=== PATIENT | male | born 1955 | race Caucasian/White ===

== ENCOUNTER 2020-12-20 12:56 | Emergency (ER) | payer MEDICARE, SELFPAY ==
[2020-12-20] VITALS (7 sets, daily range): BP systolic 104–178; BP diastolic 54–87; PULSE 77–100; RESP 18; TEMP 36.8; O2SAT 99–100
--- NOTE | ~2020-12-20 | CT_ITS ---
EXAMINATION: CT brain wo con, CT cervical spine wo con EXAM DATE: 12/20/2020 14:40 INDICATION: Head injury. TECHNIQUE: Spiral CT of the head was performed without contrast. Axial, coronal and sagittal images were reviewed. Spiral CT of the cervical spine was performed without contrast. Axial images were rev iewed. Coronal and sagittal reformatted images were also reviewed. The dose-length product (DLP) fo r this examination was 681.00 (accession [id number]), 423.94 (accession [id number]) mGy-cm. The exposure was tailored according to patient size, and iterative reconstruction (ASIR) was used as additional dose reduction technique. Comparison is made to prior examination from 10/05/2019. FINDINGS: HEAD CT: There is moderate-sized old left frontal lobe infarction. Small old left occipital lobe infa rction. There is no acute intraparenchymal hemorrhage. No evidence of intraparenchymal brain mass le yfn. No evidence of acute infarction. There is periventricular and subcortical hypodensity, nonspec ific but probably related to small vessel ischemic disease. There is prominence of the sulci and ve ntricles related to cerebral atrophy. There is intracranial carotid arteriosclerosis. There is no mass effect or midline shift. There is no obstructive hydrocephalus suspected. There are no extra-a xial collections. There are no acute calvarial fractures. The orbits are unremarkable. Small soft tissue nodular density along the skin of the left forehead. Possible small amount of left posterior s calp swelling. The visualized sinuses and mastoid air cells are well aerated. CERVICAL CT: Mild apical emphysema. There is no evidence of acute cervical fracture. The odontoid pr ocess is intact. Pre-dens space is normal. Prevertebral soft tissue is normal. There are no soft t issue abnormalities identified. There is no disc space widening or traumatic vertebral body subluxat ion suspected. Interbody fusion C4-5 and 5-6. Severe right facet arthropathy at C3-4 with mild to mo derate disc bulge and central canal stenosis. Lesser spondylosis at other levels. A detailed level b y level evaluation of spondylosis can be added as addendum if requested. IMPRESSION: 1. No acute intracranial findings or cervical fracture. 2. Old left-sided infarctions.. 3. Age-related intracranial findings. 4. Cervical fusion, spondylosis. 5. Scalp findings. Reviewed, dictated and finalized at location A. BURNER IMPRESSION: 1. No acute intracranial findings or cervical fracture. 2. Old left-sided infarctions.. 3. Age-related intracranial findings. 4. Cervical fusion, spondylosis. 5. Scalp findings.
--- NOTE | ~2020-12-20 | XR_ITS ---
EXAMINATION: XR chest 1V portable INDICATION: Pain after fall TECHNIQUE: Portable AP chest at 1331 hours COMPARISON: 10/05/2019 FINDINGS: The lungs are free of acute opacities. There is no pleural effusion or pneumothorax. The ca rdiomediastinal silhouette is normal. There is an old fracture of the right distal clavicle. Osteoart hritis is noted in the shoulders. IMPRESSION: 1. No acute cardiopulmonary abnormality. Reviewed, dictated and finalized at location A. ME WORKER
--- NOTE | 2020-12-20 13:23 | ECG_ITS ---
Measurements Intervals [place] Rate: 73 P: -6 CT: 205 QRS: 67 QRSD: 93 T: 30 QT: 378 QTc: 419 Interpretive Statements SINUS RHYTHM BORDERLINE AV CONDUCTION DELAY BORDERLINE ECG Electronically Signed On 12-20-2020 16:24:18 [employer] by Raj Castaneda D.O.
--- NOTE | 2020-12-20 13:26 | ED.FALL ---
HPI - Fall General Chief Complaint: Fall Stated Complaint: fall, high blood sugar Source: patient and EMS Mode of arrival: EMS Limitations: dementia History of Present Illness HPI Narrative: Patient 65 years old white male brought to the emergency room by ambulance because of a fall. Patient does not remember how the fall happened. History of dementia. According to the ambulance report patient was walking, lost his balance and fell, no loss of consciousness, patient complaining of headache. Patient does not remember if the headache was before or after the fall. Patient denying any injury. Patient does not remember anything but he is awake, alert oriented x4. Patient had history of CVA with right hemiplegia, uses a walker sometimes. Related Data Home Medications Medication Instructions Recorded Confirmed atorvastatin [Lipitor] 10 mg PO DAILY 10/05/19 10/05/19 metformin [Glucophage XR] 500 mg PO DAILY 10/05/19 10/05/19 niacin 500 mg PO DAILY 10/05/19 10/05/19 sertraline 50 mg PO DAILY 10/05/19 10/05/19 insulin degludec [Tresiba 10 unit SUBCUT 12/20/20 FlexTouch U-200] quinapril 40 mg PO DAILY 12/20/20 12/20/20 Allergies Allergy/AdvReac Type Severity Reaction Status Date / Time No Known Allergies Allergy Verified 10/07/19 14:33 Review of Systems Review of Systems: ROS unobtainable: Yes unobtainable due to mental status PMFSH Past Medical History Medical History (Updated 12/20/20 @ 17:03 by Christiano Tran MD) Arthritis Blind left eye Bronchitis Depression DM2 (diabetes mellitus, type 2) HTN (hypertension), malignant Hyperlipidemia Internal hemorrhoids Pelvic fracture TBI (traumatic brain injury) Tobacco abuse Surgical History Surgical History History of cardiac catheterization History of spinal surgery Family History Family History Mother Diabetes mellitus Father Carcinoma of colon Social History Social History Social History: The patient is . He is currently staying with his son. Dr. Nielsen is his primary care doctor. His brother Robert is his durable power consumer attorney and the patient wishes to be a DNR after the surgery Smoking packs per day: 0.4 Smoking cigarettes per day: 8.0 Years smoked: 52 Smoking pack-years: 20.80 Smoking status: Light tobacco smoker Tobacco type: cigarettes Second hand tobacco smoke exposure: Yes Alcohol intake: former Substance use: never Substance use type: does not use Additional living arrangements comments: His son Additional occupation/education comments: Disabled Gender identity (if verbalized by the patient): Male Spiritual care concerns: No Agree to blood products: Yes Exam Narrative: Exam Narrative: General appearance: Well-developed, well-nourished Skin: Normal color Head: Normocephalic, nontraumatic Eyes: Clear conjunctiva ENT: Oropharynx normal, ears normal, nose normal Neck: Supple, nontender Chest and respiratory: Airway patent, no respiratory distress, no accessory muscle use Heart: Regular rate/rhythm Abdomen: Soft, nontender, no organomegaly, quiet bowel sounds Vascular: Normal peripheral pulses, normal capillary refill. Musculoskeletal: Normal range of motion, nontender back, limited range of motion of the right and lower extremity because of hemiplegia Neurologic: Alert and oriented ?3, right hemiplegia Course Course Emergency Course: Stable Vital Signs Vital signs: Vital Signs Temperature 36.8 C 12/20/20 13:02 Pulse Rate 77 12/20/20 13:02 Respirato
[2020-12-20 14:03] LABS: Basophils Percent Auto 0.8 % (0.2-1.2); Eosinophils Absolute Auto 0.1 K/mm3 (0-0.3); Eosinophils Percent Auto 2.8 % (0-4.4); Hematocrit 30.6 % (42.0-52.0); Hemoglobin 10.7 g/dL (14.0-18.0); Immature Granulocyte Absolute 0.02 K/mm3 (0.00-0.031); Immature Granulocyte Percent A 0.4 % (0-0.5); Lymphocytes Absolute Auto 0.86 K/mm3 (0.9-3.2); Lymphocytes Percent Auto 18.3 % (18.3-44.2); Mean Corpuscular Hemoglobin 30.8 pg (26-34); Mean Corpuscular Volume 88.2 fl (80-100); Mean Platelet Volume 9.4 fl (7.4-10.4); Monocytes Absolute Auto 0.2 K/mm3 (0.1-0.6); Monocytes Percent Auto 4.9 % (2.6-8.5); Neutrophils Absolute Auto 3.4 K/mm3 (1.3-6.7); Neutrophils Percent Auto 72.8 % (45.5-73.1); Platelet Count Result 144 k/mm3 (150-375); Red Blood Count 3.47 M/mm3 (4.6-6.20); Red Cell Distribution Width 12.9 % (11.5-14.5); White Blood Count 4.7 K/mm3 (4.5-10.0)
[2020-12-20 14:15] LABS: Partial Thromboplastin Time 25.5 SECONDS (22.3-36.8); Prothrombin Time 13.5 Seconds (11.1-14.7)
[2020-12-20 14:24] LABS: Add Urine Microscopic? YES; Appearance Urine Clear (Clear); Bilirubin Urine Negative (Negative); Blood Urine Negative (Negative); Color Urine Straw (Yellow); Glucose Urine UA 3+ mg/dL (Negative); Ketones Urine Negative (Negative); Leukocyte Esterase Ur Negative LEU/UL (Negative); Nitrate Urine Negative (Negative); Protein Urine 1+ mg/dL (Negative); RBC Urine 0-2 /hpf (0-2); Specific Grav Ur 1.024 (1.001-1.035); Urobilinogen Urine Negative mg/dL (<2.0); WBC Urine 0-3 /hpf
[2020-12-20 14:26] LABS: Alanine Aminotransferase 12 U/L (4-50); Albumin Level 3.8 g/dL (3.5-5.1); Alkaline Phosphatase 87 U/L (38-126); Anion Gap 8 mmol/L (8-16); Aspartate Amino Transferase 15 U/L (17-59); Bilirubin,Total 0.5 mg/dL (0.2-1.3); Blood Urea Nitrogen 26 mg/dL (9-20); Carbon Dioxide 27 mmol/L (22-30); Chloride 97 mmol/L (98-107); Estimated CRCL calculation 50 ml/min; Estimated Glomerular Filt Rate 55; Glucose 434 mg/dL (75-110); Potassium 4.3 mmol/L (3.4-5.0); Sodium 132 mmol/L (137-145); Troponin I < 0.012 ng/mL (0.000-0.034)
[2020-12-20 14:39] LABS: Amphetamine Screen Urine Negative (Negative); Barbiturate Screen Urine Negative (Negative); Benzodiazepines Screen Urine Negative (Negative); Cannabinoid Screen Urine Negative (Negative); Cocaine Screen Urine Negative (Negative); Methadone Screen Urine Negative (Negative); Opiate Screen Urine Negative (Negative); Phencyclidine Screen Urine Negative (Negative)
[2020-12-20 14:44] LABS: Thyroid Stimulating Hormone 0.951 uIU/mL (0.465-4.680)
[2020-12-20 14:55] LABS: Creatine Kinase 36 U/L (55-170)
[2020-12-20] MEDS: SODIUM CHLORIDE 0.9% IV 1,000 ML 999 ML IV CONT (16:39)
[2020-12-20] MEDS: INSULIN HUMAN REGULAR (*BKC) 100 UNITS/ML 7 UNITS IV PUSH (16:40)
[2020-12-20 17:59] LABS: Glucose Point of Care 323 (65-105)
== END 2020-12-20 17:54 | disposition home or self-care (01) ==
PROVIDERS: Emergency Provider Emergency Medicine; Family Provider Family Medicine; PCP Internal Medicine
DX: E11.65 Type 2 diabetes mellitus with hyperglycemia (principal); F03.90 Unspecified dementia, unspecified severity, without behavioral disturbance, psychotic disturbance, mood disturbance, and anxiety; I69.951 Hemiplegia and hemiparesis following unspecified cerebrovascular disease affecting right dominant side; M19.90 Unspecified osteoarthritis, unspecified site; E78.5 Hyperlipidemia, unspecified; I10 Essential (primary) hypertension; F32.9 Major depressive disorder, single episode, unspecified; F17.210 Nicotine dependence, cigarettes, uncomplicated; Z87.820 Personal history of traumatic brain injury; Z79.4 Long term (current) use of insulin; M47.812 Spondylosis without myelopathy or radiculopathy, cervical region; M43.22 Fusion of spine, cervical region; R94.31 Abnormal electrocardiogram [ECG] [EKG]; W18.39XA Other fall on same level, initial encounter
CPT/HCPCS: 36415; 51701; 70450; 71045; 72125; 80053; 80307; 81001; 82550; 84443; 84484; 85025; 85610; 85730; 93005; 96361; 96374; 99284; J1815; J7030

== ENCOUNTER 2021-03-28 12:29 | Observation (INO) | payer MEDICARE, SELFPAY ==
[2021-03-28] VITALS (13 sets, daily range): BP systolic 135–163; BP diastolic 64–89; PULSE 82–95; RESP 15–24; TEMP 36.3–36.8; O2SAT 21–100; BMI 21.6
--- NOTE | ~2021-03-28 | XR_ITS ---
EXAMINATION: XR thoracic spine 2V DATE: 03/29/2021 16:52 INDICATION: Thoracic back pain. TECHNIQUE: 3 views of thoracic spine were obtained. COMPARISON: None. FINDINGS: There is 5 degrees dextrocurvature of thoracic spine. Vertebral body heights are normal. Th ere is mildly decreased disc height at multiple levels in the mid and lower thoracic spine. There are bridging endplate osteophytes at multiple levels in the lower thoracic spine, consistent with diffus e idiopathic skeletal hyperostosis (DISH). IMPRESSION: 1. Mild thoracic spondylosis. 2. DISH. Reviewed, dictated and finalized at location A.
--- NOTE | ~2021-03-28 | CT_ITS ---
EXAMINATION: CT abdomen pelvis wo con EXAM DATE: 03/29/2021 09:17 INDICATION: Right flank pain. TECHNIQUE: Spiral CT of the abdomen and pelvis was performed without contrast. Axial, coronal and sag ittal images were reviewed. The dose-length product (DLP) for this examination was 284.95 mGy-cm. T he exposure was tailored according to patient size (auto mA exposure control), and iterative reconstr uction (ASIR) was used as additional dose reduction technique. There is no prior study for compariso n. FINDINGS: There is punctate left inferior calyceal stone. No ureteral stones or hydronephrosis. Mode rate prostatomegaly, measuring 6 cm in transverse dimension. The bladder is unremarkable. The liver , spleen, adrenal glands and pancreas are unremarkable. Gallbladder is unremarkable. No biliary obs truction. There is no retroperitoneal or pelvic lymphadenopathy. There is extensive scattered kerry rial sclerotic disease. Probable malrotation/nonrotation spectrum, with a small bowel located on the right side of the abdome n. There is appendicolith within an otherwise unremarkable appendix. The stomach and small bowel are unremarkable. There is expected amount of colonic stool. No free intraperitoneal gas. The heart is normal in size. There are no pericardial or pleural effusions. There are bibasilar linear opaci ties, subsegmental atelectasis. There are no osteoblastic or osteolytic lesions identified. There is a right hip gamma nail. Interbody fusion L4-5 and L5-S1. There are old rib fractures. IMPRESSION: 1. Left nephrolithiasis. No hydronephrosis or acute findings. 2. 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 3. Moderate prostatomegaly. 4. Extensive aortoiliac arterial sclerosis. Reviewed, dictated and finalized at location B.
--- NOTE | ~2021-03-28 | XR_ITS ---
XR chest 2V DATE: 03/28/2021 13:10 INDICATION: Left chest pain. Shortness of breath. TECHNIQUE: AP and lateral views COMPARISON: None FINDINGS: Interbody spinal fusion at C4-5 and C5-6. Normal heart size. Aortic arch calcification. No hilar or mediastinal enlargement. No pulmonary infiltrate or consolidation, pleural effusion or pulmonary vascular congestion or pneumo thorax. Old right lateral clavicular shaft fracture deformity. Diffuse osteopenia. IMPRESSION: No active cardiopulmonary disease Aortic atherosclerosis Diffuse osteopenia Reviewed, dictated and finalized at location A.
--- NOTE | ~2021-03-28 | XR_ITS ---
EXAMINATION: XR lumbar spine 2-3V DATE: 03/29/2021 16:52 INDICATION: Low back pain. TECHNIQUE: 3 views of lumbar spine were obtained. COMPARISON: None. FINDINGS: Bone alignment is normal. Vertebral body heights are normal. There are changes of anterior fusion procedure at L4-L5 and L5-S1 with interbody devices. Intervertebral disc heights are normal. T here is multilevel mild facet joint osteoarthritis. IMPRESSION: 1. Mild lumbar spondylosis. 2. Anterior fusion procedures at L4-L5 and L5-S1. Reviewed, dictated and finalized at location A.
--- NOTE | 2021-03-28 12:34 | ECG_ITS ---
Measurements Intervals [place] Rate: 90 P: 55 GA: 184 QRS: -3 QRSD: 81 T: 53 QT: 325 QTc: 399 Interpretive Statements SINUS RHYTHM VENTRICULAR PREMATURE COMPLEX NONSPECIFIC ST & T-WAVE ABNORMALITY- HIGH LATERAL LEADS BASELINE ARTIFACT- III, V6 BORDERLINE ECG Electronically Signed On 03-28-2021 19:17:52 CDT by Raj Castaneda D.O.
[2021-03-28 12:45] LABS: Basophils Percent Auto 0.6 % (0.2-1.2); Eosinophils Absolute Auto 0.1 K/mm3 (0-0.3); Eosinophils Percent Auto 2.2 % (0-4.4); Hemoglobin 11.2 g/dL (14.0-18.0); Immature Granulocyte Absolute 0.03 K/mm3 (0.00-0.031); Immature Granulocyte Percent A 0.5 % (0-0.5); Lymphocytes Absolute Auto 1.33 K/mm3 (0.9-3.2); Lymphocytes Percent Auto 21.1 % (18.3-44.2); Mean Corpuscular Hemoglobin 30.2 pg (26-34); Mean Corpuscular Volume 86.3 fl (80-100); Monocytes Absolute Auto 0.4 K/mm3 (0.1-0.6); Neutrophils Absolute Auto 4.4 K/mm3 (1.3-6.7); Neutrophils Percent Auto 69.6 % (45.5-73.1); Platelet Count Result 181 k/mm3 (150-375); Red Blood Count 3.71 M/mm3 (4.6-6.20); White Blood Count 6.3 K/mm3 (4.5-10.0)
[2021-03-28 12:52] LABS: Anion Gap 7 mmol/L (8-16); Blood Urea Nitrogen 25 mg/dL (9-20); Calcium 9.5 mg/dL (8.4-10.2); Carbon Dioxide 28 mmol/L (22-30); Chloride 100 mmol/L (98-107); Estimated CRCL calculation 55 ml/min; Estimated Glomerular Filt Rate 60; Glucose 233 mg/dL (75-110); Potassium 4.4 mmol/L (3.4-5.0); Sodium 135 mmol/L (137-145)
[2021-03-28 13:01] LABS: INR 0.9; Prothrombin Time 12.7 Seconds (11.1-14.7)
[2021-03-28 13:03] LABS: Partial Thromboplastin Time 33.5 SECONDS (22.3-36.8)
[2021-03-28 13:04] LABS: Troponin I < 0.012 ng/mL (0.000-0.034)
--- NOTE | 2021-03-28 13:09 | PC.NURSE ---
Patient back from x-ray at this time.
[2021-03-28 13:42] LABS: D Dimer 0.41 ug/mL (<0.48)
--- NOTE | 2021-03-28 14:25 | ED.GENADULT ---
HPI - General Adult General Chief complaint: Chest Pain Stated complaint: chest pain Time Seen by Provider: 03/28/21 12:50 Source: patient History of Present Illness HPI narrative: Patient is a 65 y/o male complaining of left sided chest pain starting 3 days ago. He describes his pain as sharp and rates it as 10/10. He states that his pain is worse with deep respiration. He has some SOB. He has no cough. Related Data Home Medications Medication Instructions Recorded Confirmed atorvastatin [Lipitor] 10 mg PO DAILY 10/05/19 10/05/19 metformin [Glucophage XR] 1,000 mg PO BID 10/05/19 10/05/19 sertraline 50 mg PO DAILY 10/05/19 10/05/19 insulin degludec [Tresiba 10 unit SUBCUT 12/20/20 FlexTouch U-200] quinapril 40 mg PO DAILY 12/20/20 12/20/20 insulin lispro [Humalog U-100 See Rx Instructions .ROUTE .COMPLEX 03/28/21 Insulin] Allergies Allergy/AdvReac Type Severity Reaction Status Date / Time No Known Allergies Allergy Verified 03/28/21 14:48 Review of Systems Constitutional: Constitutional: Denies chills, Denies fever(s), Denies headache(s) and Denies weakness Eyes: Eyes: Denies blurry vision ENT: Denies headache(s) and Denies neck pain Cardiovascular: Cardiovascular: Reports chest pain and Reports dyspnea Respiratory: Respiratory: Denies cough and Reports dyspnea Gastrointestinal: Gastrointestinal: Denies abdominal pain, Denies diarrhea, Denies nausea and Denies vomiting Genitourinary: Genitourinary: Denies hematuria and Reports dysuria Musculoskeletal: Musculoskeletal: Denies back pain and Denies neck pain Neurologic: Denies headache(s) and Denies weakness [facility] Past Medical History Medical History (Updated 03/28/21 @ 18:34 by Teresa Pace MD) Arthritis Blind left eye Bronchitis Depression DM2 (diabetes mellitus, type 2) HTN (hypertension), malignant Hyperlipidemia Internal hemorrhoids Pelvic fracture TBI (traumatic brain injury) Tobacco abuse Surgical History Surgical History History of cardiac catheterization History of spinal surgery Family History Family History Mother Diabetes mellitus Father Carcinoma of colon Social History Social History Social History: The patient is . He is currently staying with his son. Dr. Nielsen is his primary care doctor. His brother Robert is his durable power judicial law clerk and the patient wishes to be a DNR after the surgery Smoking packs per day: 0.4 Smoking cigarettes per day: 8.0 Years smoked: 52 Smoking pack-years: 20.80 Smoking status: Light tobacco smoker Tobacco type: cigarettes Second hand tobacco smoke exposure: Yes Alcohol intake: former Substance use: never Substance use type: does not use Additional living arrangements comments: His son Additional occupation/education comments: Disabled Gender identity (if verbalized by the patient): Male Spiritual care concerns: No Agree to blood products: Yes Exam Const: General: no acute distress and well developed Orientation/consciousness: oriented to person, oriented to place and confusion HENMT: Head: normocephalic Ears: external ears normal General nose exam: Normal external nose present Eyes: General: appearance normal, both eyes and all related structures Conjunctivae: conjunctivae normal Neck: Neck: normal visual inspection and full ROM Chest: Chest palpation & inspection: normal inspection of the chest and no tenderness Resp: Effort & Inspection: normal respiratory effort Auscultation: clear to auscultation bilaterally Cardio: Rate: regular rate Rhythm: regular rhythm GI: GI Palp: No abdominal tenderness and Yes Soft to palpation Skin: General skin exam: normal color and turgor normal Neuro: General: oriented to person and oriented to place Extrem: General: normal
[2021-03-28] MEDS: KETOROLAC 30 MG/ML VIAL (*BKC) IV PUSH (15:25)
[2021-03-28 15:51] LABS: Add Urine Microscopic? YES; Appearance Urine Clear (Clear); Bilirubin Urine Negative (Negative); Blood Urine Negative (Negative); Color Urine Yellow (Yellow); Glucose Urine UA 3+ mg/dL (Negative); Ketones Urine Negative (Negative); Leukocyte Esterase Ur Negative LEU/UL (Negative); Nitrate Urine Negative (Negative); Protein Urine 2+ mg/dL (Negative); Specific Grav Ur 1.007 (1.001-1.035); Urobilinogen Urine Negative mg/dL (<2.0)
[2021-03-28 16:11] LABS: Troponin I < 0.012 ng/mL (0.000-0.034)
[2021-03-28] MEDS: CYCLOBENZAPRINE HCL 10 MG TABLET PO (16:56)
--- NOTE | 2021-03-28 18:58 | PC.NURSE ---
This patient, Parmjit Quiroz, was admitted to IMU Room 203-01. Patient/family oriented to hospital policies and general routines including ID bracelet, bed and alarms, visiting hours, pain management, procedures, bathroom and other care routines, personal items, smoking policy, room service/diet, and visiting hours. Information on how to activate the Rapid Response Team has been discussed. Patient/Family are encouraged to report perceived risks to care and to ask questions if they do not understand what they are told or what they should do.
[2021-03-28 19:08] LABS: Troponin I < 0.012 ng/mL (0.000-0.034)
--- NOTE | 2021-03-28 21:17 | PM.IMHP ---
H&P: HPI History of Present Illness Date/Time: 03/28/21 21:17 Chief Complaint: chest pain, unable to pee Narrative: 65-year-old male with past medical history of insulin-dependent diabetes, hypertension and dementia who presented to the ER from home with complaints of chest pain and difficulty urinating. The patient is alert oriented to person and month and is aware that he is in the hospital but does otherwise a poor historian. Evidently the patient had been having some left side pain that radiates around to his left chest for the last 3 days. The pain is sharp and patient reports that the pain is severe. He actually cannot tell me a numerical value for the pain. The pain is reproducible with percussion of the left CVA region. He also has some reproducible pain to percussion of the left lower flank. He denied having any difficulty urinating but his son reported Review of Systems Review of Systems: Narrative: 12 systems were reviewed with pertinent positives and negatives per HPI. Except as documented in the HPI, all other systems were reviewed and are negative. [facility] Past Medical History Medical History (Updated 03/29/21 @ 02:35 by Germaine Corbin DO) Arthritis Blind left eye Carotid stenosis CVA (cerebral vascular accident) Left-sided Dementia Depression DM2 (diabetes mellitus, type 2) Essential hypertension Hyperlipidemia Internal hemorrhoids Pelvic fracture Right hemiplegia TBI (traumatic brain injury) Surgical History Surgical History (Updated 03/29/21 @ 02:24 by Germaine Corbin DO) Displaced intertrochanteric fracture of right femur (~10/05/19) History of cardiac catheterization History of shoulder surgery History of spinal surgery Status post open reduction and internal fixation (ORIF) of fracture (~09/2019) Family History Family History Mother Diabetes mellitus Father Carcinoma of colon Social History Social History (Updated 03/29/21 @ 02:25 by Germaine Corbin DO) Social History: The patient is . He reports that he is currently living with his daughter. Dr. Nielsen is his primary care doctor. His son Robert is his durable power immigration attorney. Code status DNR. Smoking packs per day: 2 Smoking cigarettes per day: 40.0 Years smoked: 50 Smoking pack-years: 100.00 Smoking status: Former smoker Tobacco type: cigarettes and cigars Second hand tobacco smoke exposure: Yes Smoking end date: 03/27/16 Alcohol intake: never Substance use: never Substance use type: does not use Additional living arrangements comments: His son Additional occupation/education comments: Disabled Gender identity (if verbalized by the patient): Male Spiritual care concerns: No Agree to blood products: Yes Meds Home Medications and Allergies Home Medications Medication Instructions Recorded Confirmed Type metformin [Glucophage XR] 1,000 mg PO BID 10/05/19 03/28/21 History insulin degludec [Tresiba 10 unit SUBCUT HS 12/20/20 03/28/21 History FlexTouch U-200] quinapril 40 mg PO DAILY 12/20/20 03/28/21 History Allergies Allergy/AdvReac Type Severity Reaction Status Date / Time No Known Allergies Allergy Verified 03/28/21 14:48 Vital Signs Vital Signs - 24 hr 03/28/21 12:31 03/28/21 12:57 03/28/21 13:51 Temperature 97.7 F 97.5 F L 97.9 F Pulse Rate 95 90 84 Respiratory Rate 16 19 18 Blood Pressure 145/78 H 149/74 H 135/66 Pulse Oximetry 100 100 100 03/28/21 14:47 03/28/21 15:32 03/28/21 16:25 Temperature 97.8 F 98.3 F 97.8 F Pulse Rate 88 89 86 Respiratory Rate 18 24 H 18 Blood Pressure 136/64 144/89 H 142/79 H Pulse Oximetry 21 L 99 100 03/28/21 16:59 03/28/21 18:04 03/28/21 18:06 Temperature 97.4 F L 97.9 F Pulse Rate 89 82 Respiratory Rate 19 15 Blood Pressure 156/85 H 145/89 H Pulse Oximetry 99 100 100 03/28/21 18:43 Temperature 97.8 F Pulse Rate 90 Respiratory R
[2021-03-29] VITALS (14 sets, daily range): BP systolic 121–179; BP diastolic 51–66; PULSE 74–98; RESP 12–18; TEMP 36.1–37.2; O2SAT 98–100
[2021-03-29 05:14] LABS: Hemoglobin A1C 10.7 % (<5.7)
[2021-03-29 05:38] LABS: Potassium 4.8 mmol/L (3.4-5.0)
[2021-03-29 06:19] LABS: Alanine Aminotransferase 11 U/L (4-50); Albumin Level 3.8 g/dL (3.5-5.1); Alkaline Phosphatase 59 U/L (38-126); Anion Gap 2 mmol/L (8-16); Aspartate Amino Transferase 19 U/L (17-59); Bilirubin,Total 0.3 mg/dL (0.2-1.3); Blood Urea Nitrogen 26 mg/dL (9-20); Calcium 9.1 mg/dL (8.4-10.2); Carbon Dioxide 31 mmol/L (22-30); Chloride 105 mmol/L (98-107); Estimated CRCL calculation 49 ml/min; Estimated Glomerular Filt Rate 55; Glucose 238 mg/dL (75-110); Lipase 79 U/L (23-300); Sodium 138 mmol/L (137-145)
[2021-03-29] MEDS: INSULIN GLARGINE (*BKC) 100 UNITS/ML 10 UNITS SUB-Q ×2 (06:42→23:09)
[2021-03-29] MEDS: hydrALAZINE HCL 20 MG/ML VIAL 10 MG IV PUSH (06:45)
[2021-03-29] MEDS: ACETAMINOPHEN 325 MG TABLET 650 MG PO ×3 (06:45→21:05)
[2021-03-29 07:48] LABS: Glucose Point of Care 149 (65-105)
[2021-03-29] MEDS: lisinopriL 20 MG TABLET 40 MG PO (08:22)
[2021-03-29] MEDS: metFORMIN HCL XR 500 MG TAB.SR.24H 1000 MG PO ×2 (08:22→17:06)
[2021-03-29 11:34] LABS: Glucose Point of Care 271 (65-105)
[2021-03-29] MEDS: INSULIN ASPART (*BKC) 100 UNITS/ML SUB-Q (11:36)
[2021-03-29 15:57] LABS: Glucose Point of Care 158 (65-105)
--- NOTE | 2021-03-29 16:19 | PM.IMPN ---
Progress Note: A&P Assessment and Plan (1) Back pain: Code(s): M54.9 - Dorsalgia, unspecified Status: Acute Assessment and Plan: Review of history and physical findings show the story seems to be evolving. Not clear if he ever had chest pain. No abd pain. Abdominal angina? but does not cause adriana-spinal pain. Drug seeking? CT A/P does not show obstructing kidney stone and no other concerning findings to explain his symptoms. DDimer negative. Trop negative x3. UA not consistent with UTI. CXR clear. Consider compression fracture so will check thoracic and lumbar xray. Increase activity as he toelrates. Add Flexeril (2) Chest pain: Qualifiers: Chest pain type: unspecified Qualified Code(s): R07.9 - Chest pain, unspecified Code(s): R07.9 - Chest pain, unspecified Status: Acute Assessment and Plan: As above. Trop negative x3. CXR clear. EKG showing nonspecific findings. Okay to move to medical floor off tele. (3) Flank pain: Code(s): R10.9 - Unspecified abdominal pain Status: Acute Assessment and Plan: As above. Etiology unclear and pain appears to be migrating. (4) DM2 (diabetes mellitus, type 2): Qualifiers: Diabetes mellitus remote computer terminal operator insulin use: with long-term use Diabetes mellitus complication status: with hyperglycemia Qualified Code(s): E11.65 - Type 2 diabetes mellitus with hyperglycemia; Z79.4 - termite renewal inspector (current) use of insulin Code(s): E11.9 - Type 2 diabetes mellitus without complications Status: Chronic Assessment and Plan: A1c 10.7. The patient's blood glucose was reviewed on 03/29. Glucose remains reasonably well controlled. Continue AccuCheks covering with sliding scale. Hypoglycemia protocol available as needed. Continue current medications. (5) Essential hypertension: Code(s): I10 - Essential (primary) hypertension Status: Inactive Assessment and Plan: Patient's blood pressure was reviewed on 03/29 Blood pressure better controlled this morning. Will continue current medications with Lisinopril. (6) DVT prophylaxis: Code(s): Z29.9 - Encounter for prophylactic measures, unspecified Status: Acute Assessment and Plan: SCDs Subjective Date/time seen: 03/29/21 16:19 Interval history: 65yo male here for chest pain. Patient states that his pain is mid back and 'chest' but points to his left side of his abdomen. Pain has been coming and going for 3-4 days. No sciatic symptoms. No n/v. No diarrhea or constipation symptoms. Describes the pain as 'stabbing'. Denies that it is pleuritic. Abd pain not worse with food Exam Narrative: Exam Narrative: AF 98.4 131/51 98 12 100% ra Gen - NARD but occasionally clenches and tightens his muscles Chest - CTA bilaterally, nml RR CV - RRR S1/S2; Tele showing PACs and PVCs Abd - Soft, ND, Positive BS. No pain to deep palpation. abd bruit. 2+ femoral with left bruit Back - perispinal tenderness thoracic region. Possible CVA tenderness Ext - No pedal edema Psych - Nml mood but odd affect Skin - Warm and dry Objective Data Vital Signs Vital Signs: Vital Signs - 24 hr 03/28/21 16:25 03/28/21 16:59 03/28/21 18:04 Temperature 97.8 F 97.4 F L 97.9 F Pulse Rate 86 89 82 Respiratory Rate 18 19 15 Blood Pressure 142/79 H 156/85 H 145/89 H Pulse Oximetry 100 99 100 03/28/21 18:06 03/28/21 18:43 03/28/21 20:00 Temperature 97.8 F Pulse Rate 90 86 Respiratory Rate 16 Blood Pressure 155/89 H Pulse Oximetry 100 100 03/28/21 22:00 03/28/21 23:13 03/29/21 00:00 Temperature 97.7 F 97 F L Pulse Rate 82 85 90 Respiratory Rate 16 18 Blood Pressure 163/65 H 179/65 H Pulse Oximetry 96 100 03/29/21 02:00 03/29/21 04:00 03/29/21 06:00 Temperature 97 F L Pulse Rate 90 74 94 Respiratory Rate 18 Blood Pressure 179/65 H Pulse Oximetry 100 03/29/21 07:51
--- NOTE | 2021-03-29 17:25 | PC.NURSE ---
This patient, Parmjit Quiroz, was transferred to [ [id number] ] on 03/29/21 at 1725. Personal belongings sent with patient. Report given to [ LOKI Mayers ]. Appropriate documentation sent with patient.
--- NOTE | 2021-03-29 17:30 | PC.NURSE ---
This patient, Parmjit Quiroz, was received from [IMU ] on 03/29/21 at 1730. Patient/family oriented to unit policies and routines
[2021-03-29] MEDS: CYCLOBENZAPRINE HCL 5 MG TABLET PO (21:05)
[2021-03-29 23:07] LABS: Glucose Point of Care 174 (65-105)
[2021-03-30] VITALS: BP 104/42; PULSE 92; RESP 16; TEMP 36.8; O2SAT 98
[2021-03-30 05:47] VITALS: BP 96/43; PULSE 89; RESP 16; TEMP 36.6; O2SAT 99
[2021-03-30] MEDS: metFORMIN HCL XR 500 MG TAB.SR.24H 1000 MG PO (08:29)
[2021-03-30] MEDS: lisinopriL 20 MG TABLET 40 MG PO (08:29)
[2021-03-30 10:00] VITALS: BP 128/53; PULSE 90; RESP 18; TEMP 36; O2SAT 96
[2021-03-30 11:04] LABS: Glucose Point of Care 106 (65-105)
[2021-03-30 11:46] LABS: Glucose Point of Care 241 (65-105)
[2021-03-30] MEDS: INSULIN ASPART (*BKC) 100 UNITS/ML SUB-Q (11:47)
--- NOTE | 2021-03-30 15:36 | PM.DS ---
DS: Admitting Diagnosis Admitting Diagnosis Admitting Diagnosis: chest pain; unable to urinate per son DS: Discharge Diagnosis Discharge Diagnosis (1) Back pain: Code(s): M54.9 - Dorsalgia, unspecified Status: Acute Assessment and Plan: Review of history and physical findings show the story seems to be evolving. Not clear if he ever had chest pain. No abd pain. Abdominal angina? but does not cause adriana-spinal pain. Drug seeking? CT A/P does not show obstructing kidney stone and no other concerning findings to explain his symptoms. DDimer negative. Trop negative x3. UA not consistent with UTI. CXR clear. Consider compression fracture so will check thoracic and lumbar xray. Increase activity as he toelrates. Add Flexeril (2) Chest pain: Qualifiers: Chest pain type: unspecified Qualified Code(s): R07.9 - Chest pain, unspecified Code(s): R07.9 - Chest pain, unspecified Status: Acute Assessment and Plan: Trop negative x3 CXR clear EKG showing nonspecific findings off tele (3) Flank pain: Code(s): R10.9 - Unspecified abdominal pain Status: Acute Assessment and Plan: Etiology unclear and pain appears to be migrating (4) DM2 (diabetes mellitus, type 2): Qualifiers: Diabetes mellitus complication status: with hyperglycemia Diabetes mellitus longwall shearer operator insulin use: with longwall shearer operator use Qualified Code(s): E11.65 - Type 2 diabetes mellitus with hyperglycemia; Z79.4 - senior care (current) use of insulin Code(s): E11.9 - Type 2 diabetes mellitus without complications Status: Chronic Assessment and Plan: A1c 10.7. The patient's blood glucose was reviewed on 03/29 Glucose remains reasonably well controlled AccuCheks covering with sliding scale Hypoglycemia protocol available as needed Continue current medications (5) DVT prophylaxis: Code(s): Z29.9 - Encounter for prophylactic measures, unspecified Status: Acute Assessment and Plan: SCDs DS: Summary Hospital Course Hospital Course: 65 year old man admitted for chest pain. Chest pain workup was negative. CXR showed no acute diseese. He underwent CT of A/P which revealved a non obstructing kidney stone. D-dimer was negative; troponin was negative x3. UA was not suggestive of UTI. Xray of thoracic and lumbar spine showed mild spondylosis. He is at his baseline and stable for discharge. Time Spent with Patient Time attestation: 55 Exam Const: General: no acute distress, alert and awake Orientation/consciousness: patient oriented x3 HENMT: Head: normocephalic and atraumatic Ears: hearing grossly normal bilaterally and external ears normal Face and sinus: face symmetric Mouth: Yes Normal oral and palatal mucosa present Eyes: Pupils: Equal, round and reactive pupils present EOM: EOMs intact bilaterally Neck: Neck: full ROM, trachea midline and no JVD Thyroid: thyroid normal Chest: Chest palpation & inspection: normal inspection of the chest Resp: Effort & Inspection: normal respiratory effort Auscultation: clear to auscultation bilaterally Cardio: Jugular venous distension: no JVD Rate: regular rate Rhythm: regular rhythm Heart sounds: S1 normal heart sound present and S2 normal heart sound present GI: Inspection: normal to inspection GI Palp: Yes Soft to palpation Percussion: Yes normal to percussion Auscultation: normal bowel sounds : General: Yes no CVA tenderness Back/Spine/Pelvis: Back: no CVA tenderness Skin: General skin exam: normal color Rashes: no rashes Psych: Affect: normal affect Judgement: Good judgement present (Psych) DS: Data Data Completed and Pending Labs on day of discharge: Labs from last 24 hours 03/30/21 03/30/21 03/29/21 11:41 08:28 23:00 POC Capillary Glucose 241 H 106 174 H 03/29/21 15:41 POC Capillary Glucose 158 H Discharge Plan Discharge Attending physician on d
== END 2021-03-30 12:40 | disposition home health service (06) ==
LOC: ANHED 13:35 → ANHIMU 17:54 → ANH3MED 03-29 17:23
PROVIDERS: Internal Medicine; Admitting Provider Internal Medicine; Emergency Provider Emergency Medicine; PCP Internal Medicine; Visit Provider Internal Medicine
DX: R07.9 Chest pain, unspecified (principal); R10.9 Unspecified abdominal pain; E11.65 Type 2 diabetes mellitus with hyperglycemia; M47.816 Spondylosis without myelopathy or radiculopathy, lumbar region; R06.02 Shortness of breath; I10 Essential (primary) hypertension; F17.210 Nicotine dependence, cigarettes, uncomplicated; Z79.4 Long term (current) use of insulin
CPT/HCPCS: 36415; 71046; 72070; 72100; 74176; 80048; 80053; 81001; 82948; 83036; 83690; 84484; 85025; 85380; 85610; 85730; 93005; 96374; 96375; 99285; A9270; G0378; J0360; J1815; J1885

== ENCOUNTER 2022-06-17 18:33 | Inpatient (IN) | payer MEDICARE, SELFPAY ==
[2022-06-17] VITALS (32 sets, daily range): BP systolic 74–147; BP diastolic 36–114; PULSE 81–101; RESP 12–27; TEMP 36.4–36.5; O2SAT 94–100; BMI 20.7
--- NOTE | ~2022-06-17 | XR_ITS ---
XR abdomen NG/feed tube insert INDICATION: Evaluate NG tube position. TECHNIQUE: Limited KUB perform for evaluating NG tube . COMPARISON: No prior studies for comparison. FINDINGS: NG tube tip in the stomach. Visualized bowel gas pattern is unremarkable. IMPRESSION: 1: NG tube tip in the stomach. Reviewed, dictated and finalized at location A.
--- NOTE | ~2022-06-17 | XR_ITS ---
EXAMINATION: XR chest port-a-cath/central DATE: 06/17/2022 20:31 INDICATION: Central line placement. TECHNIQUE: A single frontal view of the chest was obtained. COMPARISON: Chest 2 views 03/28/2021, CT abdomen and pelvis 03/29/2021 FINDINGS: There are airspace and interstitial opacities in all lung zones bilaterally. No pleural eff usion or pneumothorax. The heart size is normal. A right internal jugular central venous catheter is seen with tip at the superior cavoatrial junction. There is an old fracture of right clavicle. There are changes of anterior fusion procedure in cervical spine. IMPRESSION: 1. Central line tip at superior cavoatrial junction. 2. Diffuse lung disease, consistent with pulmonary edema versus pneumonia. Reviewed, dictated and finalized at location A.
--- NOTE | ~2022-06-17 | XR_ITS ---
XR chest ET placement 06/18/2022 13:58 Indication: Respiratory distress. Intubation. Procedure: AP portable chest Comparison: Comparison to multiple prior studies sequentially, with oldest reviewed study dated 07/2019. Findings: Endotracheal tube tip 5 cm above the toy. Borderline heart size. Mild diffuse bilateral airspace disease has progressed, most likely edema. Small left effusion. No pneumothorax. Right IJ ce ntral line tip near the cavoatrial junction. Impression: 1: Progression of diffuse bilateral airspace disease, most likely edema. Pneumonia less favored. Reviewed, dictated and finalized at location A. Impression: 1: Progression of diffuse bilateral airspace disease, most likely edema. Pneumo derek less favored.
--- NOTE | 2022-06-17 18:46 | ECG_ITS ---
Measurements Intervals [place] Rate: 92 P: 64 [place]: 191 QRS: -34 QRSD: 106 T: 174 QT: 393 QTc: 488 Interpretive Statements SINUS RHYTHM LEFT AXIS DEVIATION DELAYED PRECORDIAL R/S TRANSITION SUBTLE ST ELEVATION IN SEPTAL LEADS- CONSIDER ACUTE INFARCT ST-T WAVE ABNORMALITY IN ANT/HIGH LAT LEADS- CONSIDER ISCHEMIA ABNORMAL ECG Electronically Signed On 06-18-2022 17:13:07 CDT by Raj Castaneda D.O.
[2022-06-17 19:00] LABS: Glucose Point of Care > 500 mg/dl (65-105)
[2022-06-17 19:01] LABS: Hematocrit 31.8 % (42.0-52.0); Mean Corpuscular HGB Conc 34.6 g/dl (32-36); Mean Corpuscular Hemoglobin 30.3 pg (26-34); Mean Corpuscular Volume 87.6 fl (80-100); Mean Platelet Volume 9.4 fl (7.4-10.4); Platelet Count Result 166 k/mm3 (150-375); Red Blood Count 3.63 M/mm3 (4.6-6.20); Red Cell Distribution Width 13.7 % (11.5-14.5); White Blood Count 15.9 K/mm3 (4.5-10.0)
--- NOTE | 2022-06-17 19:02 | ED.GENADULT ---
HPI - General Adult General Chief complaint: Nausea/Vomiting/Diarrhea Stated complaint: CP, HI GLUCOSE Time Seen by Provider: 06/17/22 18:53 History of Present Illness HPI narrative: 67 male with history of diabetes presents to the emergency department for evaluation of chest pain and high blood sugars. Patient has been feeling poorly over the last month. Daughter went to check on him today and found him very lethargic laying in bed. Patient is alert but somnolent. Patient states he has had chest pain daily since April. Daughter states that he began complaining about the chest pain more significantly on Monday. States patient has a history of IA approximately 5 years ago. Patient does not follow-up with cardiology. Related Data Home Medications Medication Instructions Recorded Confirmed atorvastatin 40 mg tablet 40 mg PO HS 06/17/22 06/17/22 insulin degludec 200 unit/mL (3 20 - 24 unit subcut HS 06/17/22 06/17/22 mL) subcutaneous pen (Tresiba FlexTouch U-200 insulin) insulin lispro 100 unit/mL 1 sliding scale dose subcut 06/17/22 06/17/22 subcutaneous pen USEASDIRECTD metformin 500 mg tablet,extended 500 mg PO BID 06/17/22 06/17/22 release 24 hr pantoprazole 40 mg tablet,delayed 40 mg PO QAM 06/17/22 06/17/22 release sertraline 100 mg tablet 100 mg PO HS 06/17/22 06/17/22 Allergies Allergy/AdvReac Type Severity Reaction Status Date / Time No Known Allergies Allergy Verified 06/17/22 18:52 Review of Systems Review of Systems: ROS unobtainable: Yes unobtainable due to medical condition [facility] Past Medical History Medical History Arthritis Blind left eye Carotid stenosis CVA (cerebral vascular accident) Left-sided Dementia Depression DM2 (diabetes mellitus, type 2) Essential hypertension Hyperlipidemia Internal hemorrhoids Pelvic fracture Right hemiplegia TBI (traumatic brain injury) Surgical History Surgical History Displaced intertrochanteric fracture of right femur (~10/05/19) History of cardiac catheterization History of shoulder surgery History of spinal surgery Status post open reduction and internal fixation (ORIF) of fracture (~09/2019) Family History Family History Mother Diabetes mellitus Father Carcinoma of colon Social History Social History Social History: The patient is . He reports that he is currently living with his daughter. Dr. Nielsen is his primary care doctor. His son Robert is his durable power trademark attorney. Code status DNR. Smoking packs per day: 2 Smoking cigarettes per day: 40.0 Years smoked: 50 Smoking pack-years: 100.00 Smoking status: Former smoker Tobacco type: cigarettes and cigars Second hand tobacco smoke exposure: Yes Smoking end date: 03/27/16 Alcohol intake: never Substance use: never Substance use type: does not use Additional living arrangements comments: His son Additional occupation/education comments: Disabled Gender identity (if verbalized by the patient): Male Spiritual care concerns: No Agree to blood products: Yes Exam Narrative: APPEARANCE: Ill-appearing HEAD: normocephalic, atraumatic. EYES: PERRLA/EOMI, conjunctivae clear. NOSE: Normal no drainage EARS:TMS clear with good light reflex. THROAT: Pharynx clear, no exudate. NECK: Supple. No adenopathy, no masses. RESPIRATORY: Airway patent, respirations nonlabored. Clear to auscultation bilaterally, no rales, rhonchi, wheezing. CARDIOVASCULAR: Regular rate and rhythm without murmurs rubs or gallops. ABDOMINAL: Soft, nontender, nondistended, normal bowel sounds MUSCULOSKELETAL: Moves all extremities. Strength/ROM intact, No edema, No calf tenderness. NEURO: Alert. Cranial nerves II through XII intact. Righ
[2022-06-17] MEDS: SODIUM CHLORIDE 0.9% IV 1,000 ML 999 ML IV CONT ×2 (19:04→19:08)
[2022-06-17 19:20] LABS: Band Neutrophils Percent 2 % (0-6); Lymphocytes Absolute Manual 1.27 K/mm3 (1.1-4.5); Lymphocytes Percent Manual 8 % (18-44); Monocytes Absolute Manual 0.63 K/mm3 (0.1-0.90); Monocytes Percent Manual 4 % (3-9); Neutrophils Absolute Manual 13.83 K/mm3 (1.3-6.7); Neutrophils Percent Manual 85 % (46-73); Platelet Estimate Adequate (Adequate); Total Cells Counted 100
[2022-06-17 19:21] LABS: Eosinophils Absolute Manual 0.15 K/mm3 (0.02-0.5); Eosinophils Percent Manual 1 % (0-4)
[2022-06-17 19:33] LABS: Alanine Aminotransferase 27 U/L (6-50); Albumin Level 3.7 g/dL (3.5-5.1); Alkaline Phosphatase 72 U/L (38-126); Anion Gap 20 mmol/L (8-16); Aspartate Amino Transferase 143 U/L (17-59); Bilirubin,Total 0.7 mg/dL (0.2-1.3); Blood Urea Nitrogen 42 mg/dL (9-20); Calcium 8.3 mg/dL (8.4-10.2); Carbon Dioxide 12 mmol/L (22-30); Chloride 100 mmol/L (98-107); Estimated CRCL calculation 29 ml/min; Estimated Glomerular Filt Rate 27; Glucose 664 mg/dL (65-110); Magnesium 1.4 mg/dL (1.6-2.3); Phosphorus 5.8 mg/dL (2.5-4.5); Potassium 6.3 mmol/L (3.4-5.0); Sodium 132 mmol/L (137-145)
[2022-06-17 19:37] LABS: Beta-Hydroxybutyrate/Acetoacetate 5.81 mmol/L (0.02-0.27)
[2022-06-17] MEDS: MAGNESIUM SULF 1 GM/D5W 100 ML 1 GM/100 ML BAG IVPB (19:49)
[2022-06-17 19:50] LABS: Alveolar/Arterial O2 Gradient 105.3 mmHg; Base Excess ABG -16.5 mEq/l (+/-2.0); Fractional Inspired Oxygen 32 %; HCO3 ABG 10.7 mEq/l (22.0-26.0); Oxygen Content ABG 14.6 %vol (16.0-22.0); Oxygen Saturation ABG 94.5 % (95.0-100.0); Oxyhemoglobin 93.9 % THb (90.0-100.0); PCO2 ABG 29.8 mmHg (35.0-45.0); PO2 FiO2 Ratio Arterial Blood 2.75 %
[2022-06-17] MEDS: INSULIN HUMAN REGULAR (*BKC) 100 UNITS/ML 8 UNITS IV PUSH (19:51)
[2022-06-17] MEDS: CALCIUM GLUCONATE 1,000 MG/10 ML VIAL 1000 MG IV PUSH (19:51)
[2022-06-17] MEDS: SODIUM BICARBONATE 8.4% 50 MEQ/50 ML SYRINGE IV PUSH (19:51)
[2022-06-17 19:55] LABS: Device NASAL CANNULA; Modified Allen's Test Pass; Site Drawn LEFT RADIAL; pH ABG 7.171 (7.350-7.450)
[2022-06-17 20:05] LABS: SARS-CoV-2 RNA PCR Negative
[2022-06-17 20:32] LABS: Hemoglobin A1C 11.7 % (<5.7)
[2022-06-17 20:49] LABS: INR 1.2; Prothrombin Time 14.5 Seconds (11.1-14.7)
[2022-06-17 20:50] LABS: Partial Thromboplastin Time 33.1 SECONDS (22.3-36.8)
[2022-06-17] MEDS: INSULIN HUMAN REGULAR (*BKC) 100 UNITS in SODIUM CHLORIDE 0.9% IV 99 ML 12 UNITS IV CONT (20:50)
[2022-06-17] MEDS: SODIUM CHLORIDE 0.9% IV 1,000 ML 100 ML IV CONT (20:50)
[2022-06-17] MEDS: NOREPINEPHRINE 8 MG/D5W 250 ML 8 MG/250 ML BAG 9.38 MG IV CONT (20:54)
[2022-06-17 20:57] LABS: Basophils Percent Auto 0.2 % (0.2-1.2); Hematocrit 28.1 % (42.0-52.0); Hemoglobin 9.3 g/dL (14.0-18.0); Immature Granulocyte Absolute 0.18 K/mm3 (0.00-0.031); Immature Granulocyte Percent A 1.4 % (0-0.5); Lymphocytes Absolute Auto 0.41 K/mm3 (0.9-3.2); Lymphocytes Percent Auto 3.3 % (18.3-44.2); Mean Corpuscular HGB Conc 33.1 g/dl (32-36); Mean Corpuscular Hemoglobin 29.7 pg (26-34); Mean Corpuscular Volume 89.8 fl (80-100); Mean Platelet Volume 9.6 fl (7.4-10.4); Monocytes Absolute Auto 0.8 K/mm3 (0.1-0.6); Monocytes Percent Auto 6.3 % (2.6-8.5); Neutrophils Absolute Auto 11.1 K/mm3 (1.3-6.7); Neutrophils Percent Auto 88.8 % (45.5-73.1); Platelet Count Result 123 k/mm3 (150-375); Red Blood Count 3.13 M/mm3 (4.6-6.20); Red Cell Distribution Width 13.9 % (11.5-14.5); White Blood Count 12.5 K/mm3 (4.5-10.0)
[2022-06-17 21:11] LABS: Anion Gap 12 mmol/L (8-16); Blood Urea Nitrogen 38 mg/dL (9-20); Calcium 7.2 mg/dL (8.4-10.2); Carbon Dioxide 15 mmol/L (22-30); Chloride 108 mmol/L (98-107); Estimated CRCL calculation 33 ml/min; Estimated Glomerular Filt Rate 31; Glucose 559 mg/dL (65-110); Magnesium 2.1 mg/dL (1.6-2.3); Phosphorus 4.5 mg/dL (2.5-4.5); Potassium 4.7 mmol/L (3.4-5.0); Sodium 135 mmol/L (137-145)
[2022-06-17] MEDS: HEPARIN SOD/D5W 100 UNITS/ML 25,000 UNITS/250 ML BAG 9 UNITS IV CONT (21:22)
[2022-06-17] MEDS: HEPARIN SODIUM 5,000 UNITS/ML VIAL 4000 UNITS IV PUSH (21:22)
[2022-06-17] MEDS: NOREPINEPHRINE 8 MG/D5W 250 ML 8 MG/250 ML BAG 28.13 MG IV CONT (21:26)
[2022-06-17] MEDS: ASPIRIN 81 MG CHEWABLE TABLET 324 MG PO (21:28)
[2022-06-17 21:29] LABS: Appearance Urine Clear (Clear); Bilirubin Urine Negative (Negative); Blood Urine Negative (Negative); Color Urine Yellow (Yellow); Glucose Urine UA 3+ mg/dL (Negative); Ketones Urine Trace mg/dL (Negative); Leukocyte Esterase Ur Negative LEU/UL (Negative); Nitrate Urine Negative (Negative); Protein Urine 1+ mg/dL (Negative); Urobilinogen Urine 0.2 mg/dL (<2.0)
--- NOTE | 2022-06-17 21:36 | PM.IMHP ---
H&P: HPI History of Present Illness Date/Time: 06/17/22 21:36 Chief Complaint: Chest pain Narrative: Patient is a 67-year-old male with past medical history of TBI 2004, history of NE, CVA, type 2 diabetes who presents to ED with complaints of chest pain. Patient lives with his daughter, is quite debilitated. Not very active since right hip fracture 09/2019. He needs to use a walker to ambulate. In April 2022 patient started complaining of feeling weak with chest pain and he was seen by his primary care provider who apparently did not workup coronary disease. 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 Patient's blood sugars are very poorly controlled usually glucose above 200, and he gets symptoms if blood sugar drops below 150. I discussed code status with patient and daughter bedside and patient would like to be do not resuscitate. In the ED: Patient is found to be in DKA with pH 7.17, glucose greater than 500, elevated beta hydroxybutyrate, some dehydrated hyperkalemia. He was given 4 L of fluid bolus and started on Levophed through central line. His started on insulin drip for DKA, A1c 11.7. His troponin was elevated at 41.1 and EKG shows T-wave inversions. Cardiology was consulted Dr. Cedeno, start heparin drip. Patient will likely have left heart catheterization tomorrow. Review of Systems Review of Systems: Constitutional: No Fever, No Chills, No Night Sweats, No Fatigue, No Malaise ENT/Mouth: No Hearing Changes, No Ear Pain, No Nasal Congestion, No Sinus Pain, No Hoarseness, No sore throat, No Rhinorrhea, No Swallowing Difficulty Eyes: No Eye Pain, No Redness, No Vision Changes Cardiovascular: Endorses chest pain, No Palpitations, No Dyspnea on Exertion, No Orthopnea, No Claudication, No Edema Respiratory: No Cough, No Sputum, No Wheezing, No Shortness of Breath Gastrointestinal: No Nausea, No Vomiting, No Diarrhea, No Constipation, No Abdominal Pain, No Heartburn, No Hematochezia, No Melena Genitourinary: No Dysuria, No Urinary Frequency, No Hematuria, No Urinary Incontinence, No Urgency Musculoskeletal: No Arthralgias, No Myalgias, No Joint Swelling, No Joint Stiffness, No Back Pain Skin: No Skin Lesions, No Pruritis, No Hair Changes Neuro: No Weakness, No Numbness, No Paresthesias, No Loss of Consciousness, No Syncope, No Dizziness, No Headache Psych: No Anxiety/Panic, No Depression, No Insomnia Heme: No Bruising, No Bleeding Lymph: No Adenopathy Endocrine: No Polyuria, No Polydipsia, No Temperature Intolerance PMFSH Past Medical History Medical History Arthritis Blind left eye Carotid stenosis CVA (cerebral vascular accident) Left-sided Dementia Depression DM2 (diabetes mellitus, type 2) Essential hypertension Hyperlipidemia Internal hemorrhoids Pelvic fracture Right hemiplegia TBI (traumatic brain injury) Surgical History Surgical History Displaced intertrochanteric fracture of right femur (~10/05/19) History of cardiac catheterization History of shoulder surgery History of spinal surgery Status post open reduction and internal fixation (ORIF) of fracture (~09/2019) Family History Family History Mother Diabetes mellitus Father Carcinoma of colon Social History Social History Social History: The patient is . He reports that he is currently living with his daughter. Dr. Nielsen is his primary care doctor. His son Robert is his durable power district attorney. Code status DNR. Smoking packs per day: 2 Smoking cigarettes per day: 40.0 Years smoked: 50 Smoking pack-years: 100.00 Smoking status: Former smoker Tobacco type: cigarettes and cigars Second hand tobacco smoke exposure: Yes Smoking end date:
[2022-06-17 21:38] LABS: Add Urine Microscopic? YES; Mucus Urine Rare /lpf; RBC Urine 0-2 /hpf (0-2); Squamous Epithelial Cell Urine Rare /hpf (Few); WBC Urine 0-3 /hpf
--- NOTE | 2022-06-17 22:00 | ADMGEN ---
This patient, Parmjit Quiroz, was admitted to Intensive Care Unit-4. Patient/family oriented to hospital policies and general routines including ID bracelet, bed and alarms, visiting hours, pain management, procedures, bathroom and other care routines, personal items, smoking policy, room service/diet, and visiting hours. Information on how to activate the Rapid Response Team has been discussed. Patient/Family are encouraged to report perceived risks to care and to ask questions if they do not understand what they are told or what they should do.
[2022-06-17 22:40] LABS: Glucose Point of Care > 500 mg/dl (65-105)
[2022-06-17 23:18] LABS: Glucose Point of Care > 500 mg/dl (65-105)
--- NOTE | 2022-06-17 23:33 | ECG_ITS ---
Measurements Intervals [place] Rate: 86 P: 55 ID: 170 QRS: -30 QRSD: 83 T: 136 QT: 397 QTc: 476 Interpretive Statements SINUS RHYTHM SUBTLE SEPTAL ST ELEVATION- CONSIDER ACUTE INFARCT T WAVE ABNORMALITY IN ANTEROLAT/HIGH LAT LEADS- CONSIDER ISCHEMIA ABNORMAL ECG Electronically Signed On 06-18-2022 17:14:36 CDT by Raj Castaneda D.O.
[2022-06-18] VITALS (16 sets, daily range): BP systolic 75–124; BP diastolic 42–79; PULSE 77–96; RESP 13–16; TEMP 36–36.8; O2SAT 93–100
--- NOTE | 2022-06-18 | ECHO_ITS ---
Patient Info Name: Parmjit Quiroz Age: 67 years : 1955 Gender: Male Ht: 72 in Wt: 154 lbs BSA: 1.88 m2 HR: 109 bpm BP: 108 / 63 mmHg Heart Rhythm: Sinus Rhythm, Tachycardia Technical Quality: Good Exam Date: 06/18/2022 8:20 AM Exam Location: [facility] Patient Status: Inpatient Admit Date: 06/17/2022 Staff Ordering Physician: Antonio Roque DO Field Advisor: Joaquina Davidson RDCS Attending Provider: Antonio Roque DO Referring Physician: Mya CISNEROS; Exam Type: CA echo doppler color flow Study Info Indications I21.4 - Non-ST elevation (NSTEMI) myocardial infarction Complete two-dimensional, color flow and Doppler transthoracic echocardiogram is performed. Summary 1. Complete two-dimensional, color flow and Doppler transthoracic echocardiogram is performed. 2. Left ventricular chamber dimension is normal. 3. Left ventricular systolic function is severely reduced, estimated at 25-30% akinesis of the apex, apical septum, apical lateral, apical inferior, apical anterior mid anterior, mid anterolateral bone with relative sparing of the bases.. 4. There is mildly increased left ventricular wall thickness. 5. The left ventricular diastolic function is grade I diastolic dysfunction. 6. There is mild mitral valve regurgitation. 7. There is trace tricuspid valve regurgitation. 8. No pulmonary hypertension, estimated pulmonary arterial systolic pressure is 32 mmHg. 9. LV thrombus is not identified. Left Ventricle Left ventricular chamber dimension is normal. Left ventricular systolic function is severely reduced, estimated at 25-30% akinesis of the apex, apical septum, apical lateral, apical inferior, apical anterior mid anterior, mid anterolateral bone with relative sparing of the bases.. There is mildly increased left ventricular wall thickness. The left ventricular diastolic function is grade I diastolic dysfunction. LV thrombus is not identified. Right Ventricle Right ventricular chamber dimension is normal. Right ventricular systolic function is normal. Left Atria Left atrial chamber dimension is normal. Right Atria Right atrial chamber dimension is normal. Aortic Valve The aortic valve is probable trileaflet. There is no aortic valve stenosis. There is no aortic valve regurgitation. Pulmonic Valve The pulmonic valve is not well visualized. There is trace pulmonic regurgitation. Mitral Valve The mitral valve has thickened leaflets. There is mild mitral valve regurgitation. The mitral valve annulus is mildly calcified. Tricuspid Valve The tricuspid valve leaflets are normal. There is trace tricuspid valve regurgitation. No pulmonary hypertension, estimated pulmonary arterial systolic pressure is 32 mmHg. Pericardium/Pleural The pericardium appears normal. There is no pericardial effusion. Inferior Vena Cava Dilated inferior vena cava with <50% collapse upon inspiration consistent with elevated right atrial pressure, 10 mmHg. Aorta The aortic root size at the sinus of Valsalva is normal. Left Ventricular Outflow Tract Name Value Normal LVOT 2D LVOT Diameter 2.2 cm LVOT Doppler
[2022-06-18 00:25] LABS: Glucose Point of Care 482 mg/dl (65-105)
[2022-06-18 00:37] LABS: Anion Gap 12 mmol/L (8-16); Blood Urea Nitrogen 42 mg/dL (9-20); Calcium 7.8 mg/dL (8.4-10.2); Carbon Dioxide 18 mmol/L (22-30); Chloride 108 mmol/L (98-107); Estimated CRCL calculation 26 ml/min; Estimated Glomerular Filt Rate 27; Glucose 428 mg/dL (65-110); Potassium 4.6 mmol/L (3.4-5.0); Sodium 138 mmol/L (137-145)
[2022-06-18 00:57] LABS: Troponin I > 80.000 ng/mL (0.000-0.034)
[2022-06-18 01:25] LABS: Glucose Point of Care 438 mg/dl (65-105)
[2022-06-18 02:23] LABS: Glucose Point of Care 389 mg/dl (65-105)
[2022-06-18] MEDS: INSULIN HUMAN REGULAR (*BKC) 100 UNITS in SODIUM CHLORIDE 0.9% IV 99 ML 21.4 UNITS IV CONT (03:05)
[2022-06-18 03:11] LABS: Glucose Point of Care 365 mg/dl (65-105)
[2022-06-18 04:01] LABS: Anion Gap 11 mmol/L (8-16); Blood Urea Nitrogen 44 mg/dL (9-20); Calcium 7.9 mg/dL (8.4-10.2); Carbon Dioxide 19 mmol/L (22-30); Chloride 110 mmol/L (98-107); Cholesterol 136 mg/dL (0-200); Estimated CRCL calculation 26 ml/min; Estimated Glomerular Filt Rate 27; Glucose 236 mg/dL (65-110); HDL Direct 39 mg/dL; Lactic Acid Reflex 3.1 mmol/L (0.7-2.0); Magnesium 1.6 mg/dL (1.6-2.3); Potassium 4.3 mmol/L (3.4-5.0); Sodium 140 mmol/L (137-145); Triglycerides 85 mg/dL (<150)
[2022-06-18 04:12] LABS: LDL Cholesterol Direct 63 mg/dL
[2022-06-18 04:15] LABS: Glucose Point of Care 348 mg/dl (65-105)
[2022-06-18 04:20] LABS: Partial Thromboplastin Time > 200.0 SECONDS (22.3-36.8)
[2022-06-18 04:27] LABS: Basophils Percent Auto 0.1 % (0.2-1.2); Eosinophils Percent Auto 0.1 % (0-4.4); Hemoglobin 10.9 g/dL (14.0-18.0); Immature Granulocyte Absolute 0.18 K/mm3 (0.00-0.031); Immature Granulocyte Percent A 1.1 % (0-0.5); Lymphocytes Absolute Auto 1.21 K/mm3 (0.9-3.2); Lymphocytes Percent Auto 7.6 % (18.3-44.2); Mean Corpuscular HGB Conc 35.2 g/dl (32-36); Mean Corpuscular Hemoglobin 30.4 pg (26-34); Mean Corpuscular Volume 86.6 fl (80-100); Mean Platelet Volume 9.1 fl (7.4-10.4); Monocytes Absolute Auto 0.8 K/mm3 (0.1-0.6); Monocytes Percent Auto 4.9 % (2.6-8.5); Neutrophils Absolute Auto 13.6 K/mm3 (1.3-6.7); Neutrophils Percent Auto 86.2 % (45.5-73.1); Red Blood Count 3.58 M/mm3 (4.6-6.20); White Blood Count 15.8 K/mm3 (4.5-10.0)
[2022-06-18 04:27] LABS: Troponin I > 80.000 ng/mL (0.000-0.034)
[2022-06-18 04:31] LABS: Platelet Count Result 239 k/mm3 (150-375)
[2022-06-18 05:29] LABS: Glucose Point of Care 226 mg/dl (65-105)
[2022-06-18 06:26] LABS: Glucose Point of Care 173 mg/dl (65-105)
[2022-06-18] MEDS: KCL 20 MEQ/D5/0.45% SOD CHL 1,000 ML 150 ML IV CONT (06:26)
[2022-06-18 06:46] LABS: Reflex Lactic Acid Yes or No Add Lactic
[2022-06-18 07:42] LABS: Glucose Point of Care 57 mg/dl (65-105)
[2022-06-18 07:42] LABS: Glucose Point of Care 106 mg/dl (65-105)
[2022-06-18 08:21] LABS: Lactic Acid 2.5 mmol/L (0.7-2.0)
[2022-06-18 08:32] LABS: Anion Gap 10 mmol/L (8-16); Blood Urea Nitrogen 46 mg/dL (9-20); Calcium 8.1 mg/dL (8.4-10.2); Carbon Dioxide 19 mmol/L (22-30); Chloride 111 mmol/L (98-107); Estimated CRCL calculation 25 ml/min; Estimated Glomerular Filt Rate 26; Glucose 49 mg/dL (65-110); Potassium 4.2 mmol/L (3.4-5.0); Sodium 140 mmol/L (137-145)
[2022-06-18] MEDS: DEXTROSE 50% 25 GM/50 ML SYRINGE IV PUSH (08:59)
--- NOTE | 2022-06-18 09:18 | ECG_ITS ---
Measurements Intervals [place] Rate: 95 P: 44 [place]: 164 QRS: -32 QRSD: 88 T: 135 QT: 364 QTc: 460 Interpretive Statements SINUS RHYTHM LEFT AXIS DEVIATION ANTEROLATERAL INFARCT- PROBABLY RECENT BASELINE ARTIFACT- I, AVL ABNORMAL ECG Electronically Signed On 06-18-2022 17:16:10 CDT by Raj Castaneda D.O.
[2022-06-18] MEDS: ASPIRIN 81 MG ENTERIC TABLET PO (09:20)
[2022-06-18] MEDS: PANTOPRAZOLE 40 MG TABLET PO (09:20)
[2022-06-18 09:38] LABS: Glucose Point of Care 51 mg/dl (65-105)
[2022-06-18 09:38] LABS: Glucose Point of Care 131 mg/dl (65-105)
--- NOTE | 2022-06-18 09:49 | PM.CNCAR ---
Assessment and Plan Assessment and plan (1) Non-ST elevation MA (NSTEMI): Code(s): I21.4 - Non-ST elevation (NSTEMI) myocardial infarction Status: Acute Assessment and Plan: Review of prior EKG suggest probable subacute/late presentation ST-elevation MA with septal infarction with significantly elevated troponin at presentation 41 with persistent chest pain symptoms for least several days to 2 weeks per historical documentation and patient. Continue heparin infusion. Acute myocardial infarction complicated by diabetic ketoacidosis, acute kidney injury, hyperkalemia, and shock likely cardiogenic. Given high troponin elevation, severe LV dysfunction and high likelihood of severe obstructive underlying CAD patient at high risk for and associated complications. Further recommendations post angiography. Continue aspirin, statin. Optimize medical therapy as clinical picture and BP permits. (2) Shock: Code(s): R57.9 - Shock, unspecified Status: Acute Assessment and Plan: Most likely cardiogenic. 2D echocardiogram reveals severe LV systolic dysfunction with EF 25-30% with akinetic apex, anterior to mid segments with sparing of the bases. Urgent coronary angiography advised, Dr. Villatoro of Interventional Cardiology agrees. He remains on Levophed. Prognosis is guarded in quite poor. Patient is high risk for serious life-threatening and or fatal complications including but not limited to ventricular arrhythmias multiorgan dysfunction, possible need for hemodialysis given renal failure. Patient has been adequately volume resuscitated but remains hypotensive. (3) DKA (diabetic ketoacidosis): Qualifiers: Diabetes mellitus type: type 2 Code(s): E11.10 - Type 2 diabetes mellitus with ketoacidosis without coma Status: Acute Assessment and Plan: Improved from presentation with acute kidney injury and hyperkalemia status post 5 L IV normal saline, insulin infusion. Management per primary service and Critical Care. (4) Acute hyperkalemia: Code(s): E87.5 - Hyperkalemia Status: Acute Assessment and Plan: Resolved. (5) BIN (acute kidney injury): Code(s): N17.9 - Acute kidney failure, unspecified Status: Acute Assessment and Plan: As above. Monitor closely. Counseled patient on risk for deterioration of kidney function with contrast administration. Given clinical situation benefit outweighs risk as was explained. Patient agreed. History of Present Illness History of Present Illness Consult date/time: Date of service:06/18/22 09:49 Requesting physician: Antonio Roque DO Reason For Visit: dka, nstemi Narrative: Patient is a 67-year-old male with a past medical history reported per electronic medical record for traumatic brain injury 2004, supposed history of CAD and prior myocardial infarction although patient denies known CAD, type 2 diabetes mellitus since age 38, hypertension relatively sedentary who presented the emergency department with complaints of chest pain, weakness found to be in diabetic ketoacidosis and hyperkalemia with a potassium of 6.3. Initial troponin was 41 subsequently greater than 80. Initial EKG revealed probable anteroseptal MA with subtle ST segment elevations. Patient states he has had chest pain constantly for proximally 2 weeks waxing and waning in intensity but denies chest pain at this time. He denies shortness of breath. He denied personally having a known history of CAD or prior myocardial infarction however. Patient did not acknowledge that he has a wholesale buyer or had been seen by wholesale buyer in the past. Her electronic medical record is noted the patient was seen by his primary care physician due to feeling weak and chest pain as far back as April. Emergency department initiated insulin infusion and 4 L IV normal saline. Patient remained hypotensive and was started on Levophed through central
--- NOTE | 2022-06-18 09:56 | WPDCNINT ---
Assessment and Plan Assessment and plan (1) Non-ST elevation [place] (NSTEMI): Code(s): I21.4 - Non-ST elevation (NSTEMI) myocardial infarction Status: Acute Assessment and Plan: Patient presented with chest pain, elevated troponins, EKG changes, found to have NSTEMI along with DKA -elevated troponin levels -EKGs reviewed -appreciate cardiology evaluation and recommendation -continue heparin infusion -for coronary angiogram later today -continue aspirin, atorvastatin, morphine p.r.n., (2) Chest pain: Qualifiers: Chest pain type: unspecified Qualified Code(s): R07.9 - Chest pain, unspecified Code(s): R07.9 - Chest pain, unspecified Status: Acute Assessment and Plan: As above (3) DKA (diabetic ketoacidosis): Qualifiers: Diabetes mellitus type: type 2 Code(s): E11.10 - Type 2 diabetes mellitus with ketoacidosis without coma Status: Acute Assessment and Plan: Patient presented with blood sugars of 662, elevated anion gap, elevated beta hydroxybutyrate -patient received 4 L of IV fluid bolus in the ER insulin infusion -this morning patient's added the upper closed, patient was hypoglycemic had to be given D50 and juice -patient takes Tresiba at home, will give a low-dose of Lantus as he is currently NPO for possible coronary angiogram (4) Shock: Code(s): R57.9 - Shock, unspecified Status: Acute Assessment and Plan: Shock could be related to septic versus cardiogenic in light of NSTEMI -patient received adequate IV fluids - oliguria with worsening renal function -on Levophed, MAP > 65 mmHg at all times for adequate end organ perfusion -will check prolactin level -patient does have leukocytosis, UA did not reveal UTI, chest x-ray is diffuse bilateral infiltrates likely pulmonary edema versus pneumonia -will start ceftriaxone and azithromycin (5) BIN (acute kidney injury): Code(s): N17.9 - Acute kidney failure, unspecified Status: Acute Assessment and Plan: Patient with acute kidney injury likely due diabetic ketoacidosis, polyuria, infection, cardiogenic shock -received IV IV fluids in the ER as mentioned above -continue maintenance IV fluids as patient is currently NPO -have asked the bedside RN to flush Bacon catheter -monitor urine output, renal function electrolytes -BUN 46 and creatinine of 2.5 this morning, (6) Acute hyperkalemia: Code(s): E87.5 - Hyperkalemia Status: Acute Assessment and Plan: Potassium has resolved, likely related to acidosis from DKA (7) Blind left eye: Code(s): H54.40 - Blindness, one eye, unspecified eye Status: Chronic Assessment and Plan: Patient is blind to left eye Plan Transitioned to Lantus and sliding scale insulin Continue maintenance IV fluids Monitor urine output Coronary angiogram today Additional Plan DVT prophylaxis: Heparin infusion Stress ulcer prophylaxis: On Protonix Nutrition: NPO for coronary angiogram Code status: Do not resuscitate Critical care time spent: [address] Cedeno Discussed with 2 daughters and updated with patient's condition and plan of care. One of the daughters is the POA, I updated them with patient's condition and plan of care. They aware that he came with DKA, NSTEMI and acute kidney injury. I answered all questions This dictation may have been done utilizing a voice recognition system. Attempts have been made to correct errors. However, there may be uncorrected grammatical, spelling, and recognition errors present. Due to a high probability of clinically significant, life threatening deterioration, the patient required my highest level of preparedness to intervene emergently and I personally spent this critical care time directly and personally managing the patient. This critical care time included obtaining a history; examining the patient; pulse oximetry; ordering and review o
[2022-06-18 10:32] LABS: Glucose Point of Care 98 mg/dl (65-105)
[2022-06-18] MEDS: SODIUM CHLORIDE 0.9% IV 1,000 ML 75 ML IV CONT (10:56)
[2022-06-18 11:14] LABS: Glucose Point of Care 92 mg/dl (65-105)
--- NOTE | 2022-06-18 11:29 | WPDMODSED ---
Moderate Sedation Note-Pt Data Patient Data Allergies Allergy/AdvReac Type Severity Reaction Status Date / Time No Known Allergies Allergy Verified 06/17/22 18:52 Home Medications Medication Instructions Recorded Confirmed Type atorvastatin 40 mg tablet 40 mg PO 06/17/22 06/17/22 History insulin degludec 200 unit/mL (3 20 - 24 unit subcut 06/17/22 06/17/22 History mL) subcutaneous pen (Tresiba FlexTouch U-200 insulin) insulin lispro 100 unit/mL 1 sliding scale dose subcut 06/17/22 06/17/22 History subcutaneous pen USEASDIRECTD metformin 500 mg tablet,extended 500 mg PO BID 06/17/22 06/17/22 History release 24 hr pantoprazole 40 mg tablet,delayed 40 mg PO QAM 06/17/22 06/17/22 History release sertraline 100 mg tablet 100 mg PO 06/17/22 06/17/22 History Current Medications: Active Medications Aspirin (Aspirin 81 Mg Enteric Tablet) 81 mg PO [facility] Last Admin: 06/18/22 09:20 Dose: 81 mg Atorvastatin Calcium (Atorvastatin 40 Mg Tablet) 40 mg PO [facility] Last Admin: 06/18/22 00:48 Dose: Not Given Dextrose (Dextrose 50% 25 Gm/50 Ml Syringe) 12.5 gm IV PUSH PRN PRN; Protocol PRN Reason: Hypoglycemia Last Admin: 06/18/22 08:59 Dose: 12.5 gm Dextrose (Dextrose 50% 25 Gm/50 Ml Syringe) 12.5 gm IV PUSH PRN PRN; Protocol PRN Reason: Hypoglycemia Glucagon (Glucagon For Inj 1 Mg Vial) 1 mg IM PRN PRN; Protocol PRN Reason: Hypoglycemia Glucagon (Glucagon For Inj 1 Mg Vial) 1 mg IM PRN PRN; Protocol PRN Reason: Hypoglycemia Glucose (Glucose Oral Gel 15 Gm Of Glucse In 37.5 Gm Tube) 15 gm PO PRN PRN; Protocol PRN Reason: Hypoglycemia Glucose (Glucose Oral Gel 15 Gm Of Glucse In 37.5 Gm Tube) 15 gm PO PRN PRN; Protocol PRN Reason: Hypoglycemia Heparin Sodium (Porcine) (Heparin Sodium 5,000 Units/Ml Vial) 4,000 units IV PUSH PRN PRN PRN Reason: aPTT less than 55 seconds Heparin Sodium (Porcine) (Heparin Sodium 5,000 Units/Ml Vial) 3,000 units IV PUSH PRN PRN PRN Reason: aPTT 55 - 70 seconds Insulin Human Regular 100 (units/ Sodium Chloride) 100 mls @ 0 mls/hr IV CONT .Q0M DRAKE; Protocol Last Titration: 06/18/22 10:59 Dose: Infused Dextrose (Dextrose 5% 1,000 Ml) 1,000 mls @ 100 mls/hr IVPB PRN PRN; Protocol PRN Reason: Hypoglycemia Heparin Sodium/Dextrose (Heparin Sodium/D5w 100 Units/Ml) 25,000 units in 250 mls @ 7 mls/hr IV CONT .Q24H DRAKE; Protocol Last Titration: 06/18/22 05:21 Dose: 700 units/hr, 7 mls/hr Norepinephrine Bitartrate (Levophed 8 Mg/D5w 250 Ml) 8 mg in 250 mls @ 11.25 mls/hr IV CONT .[id number] DRAKE; Protocol Last Titration: 06/18/22 10:30 Dose: 6 mcg/min, 11.25 mls/hr Sodium Chloride (Normal Saline Iv) 1,000 mls @ 75 mls/hr IV CONT .[id number] DRAKE Last Admin: 06/18/22 10:56 Dose: 75 mls/hr Insulin Aspart (Insulin Aspart (*Bkc) 100 Units/Ml) 4 - 8 units SUB-Q Q6HR DRAKE; Protocol Last Admin: 06/18/22 11:09 Dose: Not Given Insulin Glargine (Insulin Glargine (*Bkc) 100 Units/Ml) 15 units SUB-Q DAILY [facility] Nitroglycerin (Nitroglycerin Sl 0.4 Mg Tablet) 0.4 mg SUBLINGUAL Q5MIN PRN PRN Reason: Chest Pain Pantoprazole Sodium (Pantoprazole 40 Mg Tablet) 40 mg PO QAM [facility] Last Admin: 06/18/22 09:20 Dose: 40 mg Perflutren Lipid Microsphere (Perflutren Lipid Microspheres 1.5 Ml Vial Diluted To 10 Ml Total Volume) 0 ml IV PUSH ONCE PRN; Protocol PRN Reason: adequate visualization Sertraline HCl (Sertraline Hcl 50 Mg Tablet) 100 mg PO HS [facility] Last Admin: 06/18/22 00:48 Dose: Not Given Sedation/Anesthesia: No previous sedation/anesthesia problems (including family history). [facility] Past Medical History Medical History Arthritis Blind left eye Carotid stenosis CVA (cerebral vascular accident) Left-sided Dementia Depression DM2 (diabetes mellitus, type 2) Essential hypertension Hyperlipidemia Internal hemorrhoids Pelvic fracture Right hemiplegia TBI (traumatic brain injury) Surgica
--- NOTE | 2022-06-18 12:53 | WPDCARDPROC ---
Cardiac Cath Procedure Note Date of procedure:: 06/18/22 Performing physician:: Justo Villatoro MD Procedure Procedure performed:: LEFT HEART CATHETERIZATION, CORONARY AND PERIPHERAL ANGIOGRAM REPORT DATE OF PROCEDURE: 06/18/2022 INDICATION FOR PROCEDURE: acute LA complicated by cardiogenic shock (subtle ST elevation in the septal leads) BRIEF CLINICAL HISTORY: 67-year-old male with poorly controlled diabetes mellitus, ??carotid stenosis, history of left-sided CVA with residual right-sided weakness, ? left eye blindness, history of depression, dyslipidemia, right hemiplegia presented. Patient presented to [facility] Emergency Room on 06/17/2022 with complaints of chest pain and not feeling well. As per patient's daughter, patient has been experiencing chest pain since April 2022. His initial EKG showed subtle ST elevation in the septal leads. Patient was found to be in DKA, and was admitted to the ICU . I was called by my General Cardiology partner- Dr. Cedeno about patient's clinical presentation and EKG findings. Based on clinical presentation, significant troponin elevation of more than 80 ( reference 0.00-0.034) and EKG findings, we proceeded with emergent cardiac catheterization. Cardiac catheterization was activated for the same. Benefits and risks of the procedure were discussed with the Patient's daughter in depth, and informed consent was obtained prior to the procedure. Risks of the procedure include but are not limited to vascular complications including groin hematoma, retroperitoneal bleed, vessel perforation; periprocedural LA, cardiac arrhythmias, stroke, contrast induced nephropathy, and . After discussing all the benefits, risks and alternatives, patient was willing to proceed with the procedure. PROCEDURES PERFORMED: 1. Emergent Left heart catheterization- Selective left and right coronary angiogram; LV pressure measurement and hemodynamic assessment 2. Distal abdominal aortogram with bilateral iliac runoff 3. Moderate sedation-CPT code 05251 MODERATE SEDATION: Midazolam 1 mg; fentanyl 25 mcg; Start time 1143 , Stop time 1215 ; Total [id number] time 28 minutes; Roberto Sloan RN was trained observer for moderate sedation. ACCESS SITE: Left common femoral artery PROCEDURE NOTE: After obtaining informed consent, patient was emergently brought to catheterization lab and prepped and draped in a usual sterile manner. Right common femoral pulse was severely diminished , and access could not be taken. After local anesthesia with lidocaine, Left common femoral artery access was taken with micropuncture needle followed by insertion of a 6 Guatemalan sheath. Selective right coronary angiogram was performed using 5 JR4 catheter. Next, left coronary angiogram was performed using 6 Guatemalan 3.5 CLS guide catheter. Orthogonal views were taken. Next, a 5 [place]alan pigtail catheter was advanced in the LV cavity and was flushed with normal saline. LV pressure measurement was performed. Left ventriculogram was not performed due to patient's renal insufficiency. Surface echocardiogram had shown severe LV systolic dysfunction with segmental wall motion abnormality. The gradient across the aortic valve was measured on the pullback of the catheter. The same pigtail catheter was withdrawn to the distal abdominal aorta, distal abdominal aortogram with bilateral iliac runoff was performed using DSA. Patient was hypotensive in the offset label rewinder. He was already on norepinephrine, and was initiated on dopamine 5 mcg/kg/minute in the offset label rewinder which significantly improved patient's blood pressure. FINDINGS: LEFT MAIN CORONARY: The left main coronary is a medium caliber vessel with high-grade about 80-90% stenosis in the distal segment before it bifurcates into LAD and left circumflex branches (Green 1, 1, 0). LEFT ANTERIOR DESCENDING ARTERY: The LAD is a small to medium caliber vessel with diffuse disease. There is about
--- NOTE | 2022-06-18 13:04 | PM.IMPN ---
Progress Note: A&P Assessment and Plan (1) Non-ST elevation [place] (NSTEMI): Code(s): I21.4 - Non-ST elevation (NSTEMI) myocardial infarction Status: Acute Assessment and Plan: Patient presented with chest pain, elevated troponins, EKG changes, found to have NSTEMI along with DKA -elevated troponin levels -EKGs reviewed -appreciate cardiology evaluation and recommendation -continue heparin infusion -for coronary angiogram later today -continue aspirin, atorvastatin, morphine p.r.n., (2) Chest pain: Qualifiers: Chest pain type: unspecified Qualified Code(s): R07.9 - Chest pain, unspecified Code(s): R07.9 - Chest pain, unspecified Status: Acute Assessment and Plan: As above (3) DKA (diabetic ketoacidosis): Qualifiers: Diabetes mellitus type: type 2 Code(s): E11.10 - Type 2 diabetes mellitus with ketoacidosis without coma Status: Acute Assessment and Plan: Patient presented with blood sugars of 662, elevated anion gap, elevated beta hydroxybutyrate -patient received 4 L of IV fluid bolus in the ER insulin infusion -this morning patient's added the upper closed, patient was hypoglycemic had to be given D50 and juice -patient takes Tresiba at home, will give a low-dose of Lantus as he is currently NPO for possible coronary angiogram (4) Shock: Code(s): R57.9 - Shock, unspecified Status: Acute Assessment and Plan: Shock could be related to septic versus cardiogenic in light of NSTEMI -patient received adequate IV fluids - oliguria with worsening renal function -on Levophed, MAP > 65 mmHg at all times for adequate end organ perfusion -will check prolactin level -patient does have leukocytosis, UA did not reveal UTI, chest x-ray is diffuse bilateral infiltrates likely pulmonary edema versus pneumonia -will start ceftriaxone and azithromycin (5) BIN (acute kidney injury): Code(s): N17.9 - Acute kidney failure, unspecified Status: Acute Assessment and Plan: Patient with acute kidney injury likely due diabetic ketoacidosis, polyuria, infection, cardiogenic shock -received IV IV fluids in the ER as mentioned above -continue maintenance IV fluids as patient is currently NPO -have asked the bedside RN to flush Bacon catheter -monitor urine output, renal function electrolytes -BUN 46 and creatinine of 2.5 this morning, (6) Acute hyperkalemia: Code(s): E87.5 - Hyperkalemia Status: Acute Assessment and Plan: Potassium has resolved, likely related to acidosis from DKA (7) Blind left eye: Code(s): H54.40 - Blindness, one eye, unspecified eye Status: Chronic Assessment and Plan: Patient is blind to left eye Plan Transitioned to Lantus and sliding scale insulin Continue maintenance IV fluids Monitor urine output Coronary angiogram today Additional Plan 06/18/2023 Plan is to continue current treatment. Continue with IV insulin and IV heparin. Monitor electrolytes culture. DVT prophylaxis: Heparin infusion Stress ulcer prophylaxis: On Protonix Nutrition: NPO for coronary angiogram Code status: Do not resuscitat Discussed with 2 daughters and updated with patient's condition and plan of care. One of the daughters is the POA, I updated them with patient's condition and plan of care. They aware that he came with DKA, NSTEMI and acute kidney injury. I answered all questions Subjective Date/time seen: 06/18/22 13:04 Patient was seen during the morning rounds today. Patient is pain-free now any chest pain. No shortness of breath. No abdominal pain, no nausea, no vomiting. Mood stable Review of Systems Review of Systems: All systems reviewed & are unremarkable except as noted in HPI and below Exam Narrative: General: Patient in no acute distress HEENT: Left eye blindness, right pupil reactive moist oral mucosa Neck: Supple Respiratory: Good air en
--- NOTE | 2022-06-18 13:21 | PM.TDS ---
Transfer Discharge Sum: Prov Provider Date of admission: 06/17/22 20:39 Primary care physician: Soto Nielsen, Admitting clinician: Earnest Roque DO Consults: 06/17/22 Consult to Physician Routine Comment: Consulting Provider: Angel Luis Cedeno Reason for consultation: elevated trop Has provider been notified: Yes Consult to Physician Routine Comment: Consulting Provider: Ester Herrera Reason for consultation: NSTEMI, DKA Has provider been notified: Yes Anticipated date of transfer: 06/18/22 Receiving physician/facility: Dr. Sousa, [facility] Transfer Discharge Sum: Med Medications Active and Home Medications: Home Medications atorvastatin 40 mg tablet 40 mg PO HS 06/17/22 [History Confirmed 06/17/22] insulin degludec 200 unit/mL (3 mL) subcutaneous pen (Tresiba FlexTouch U-200 insulin) 20 - 24 unit subcut 06/17/22 [History Confirmed 06/17/22] insulin lispro 100 unit/mL subcutaneous pen 1 sliding scale dose subcut USEASDIRECTD 06/17/22 [History Confirmed 06/17/22] metformin 500 mg tablet,extended release 24 hr 500 mg PO BID 06/17/22 [History Confirmed 06/17/22] pantoprazole 40 mg tablet,delayed release 40 mg PO QAM 06/17/22 [History Confirmed 06/17/22] sertraline 100 mg tablet 100 mg PO HS 06/17/22 [History Confirmed 06/17/22] Active Medications Aspirin (Aspirin 81 Mg Enteric Tablet) 81 mg PO [facility] Last Admin: 06/18/22 09:20 Dose: 81 mg Atorvastatin Calcium (Atorvastatin 40 Mg Tablet) 40 mg PO [facility] Last Admin: 06/18/22 00:48 Dose: Not Given Dextrose (Dextrose 50% 25 Gm/50 Ml Syringe) 12.5 gm IV PUSH PRN PRN; Protocol PRN Reason: Hypoglycemia Last Admin: 06/18/22 08:59 Dose: 12.5 gm Dextrose (Dextrose 50% 25 Gm/50 Ml Syringe) 12.5 gm IV PUSH PRN PRN; Protocol PRN Reason: Hypoglycemia Glucagon (Glucagon For Inj 1 Mg Vial) 1 mg IM PRN PRN; Protocol PRN Reason: Hypoglycemia Glucagon (Glucagon For Inj 1 Mg Vial) 1 mg IM PRN PRN; Protocol PRN Reason: Hypoglycemia Glucose (Glucose Oral Gel 15 Gm Of Glucse In 37.5 Gm Tube) 15 gm PO PRN PRN; Protocol PRN Reason: Hypoglycemia Glucose (Glucose Oral Gel 15 Gm Of Glucse In 37.5 Gm Tube) 15 gm PO PRN PRN; Protocol PRN Reason: Hypoglycemia Heparin Sodium (Porcine) (Heparin Sodium 5,000 Units/Ml Vial) 4,000 units IV PUSH PRN PRN PRN Reason: aPTT less than 55 seconds Heparin Sodium (Porcine) (Heparin Sodium 5,000 Units/Ml Vial) 3,000 units IV PUSH PRN PRN PRN Reason: aPTT 55 - 70 seconds Insulin Human Regular 100 (units/ Sodium Chloride) 100 mls @ 0 mls/hr IV CONT .Q0M DRAKE; Protocol Last Titration: 06/18/22 10:59 Dose: Infused Dextrose (Dextrose 5% 1,000 Ml) 1,000 mls @ 100 mls/hr IVPB PRN PRN; Protocol PRN Reason: Hypoglycemia Heparin Sodium/Dextrose (Heparin Sodium/D5w 100 Units/Ml) 25,000 units in 250 mls @ 7 mls/hr IV CONT .Q24H DRAKE; Protocol Last Titration: 06/18/22 05:21 Dose: 700 units/hr, 7 mls/hr Norepinephrine Bitartrate (Levophed 8 Mg/D5w 250 Ml) 8 mg in 250 mls @ 11.25 mls/hr IV CONT .[id number] DRAKE; Protocol Last Titration: 06/18/22 10:30 Dose: 6 mcg/min, 11.25 mls/hr Sodium Chloride (Normal Saline Iv) 1,000 mls @ 75 mls/hr IV CONT .[id number] DRAKE Last Admin: 06/18/22 10:56 Dose: 75 mls/hr Ceftriaxone Sodium/Dextrose (Rocephin 1 Gm/D5w 50 Ml) 1 gm in 50 mls @ 100 mls/hr IVPB Q24H DRAKE Stop: 06/23/22 11:59 Azithromycin (Zithromax) 500 mg in 250 mls @ 250 mls/hr IVPB Q24H DRAKE Stop: 06/23/22 11:59 Insulin Aspart (Insulin Aspart (*Bkc) 100 Units/Ml) 4 - 8 units SUB-Q Q6HR DRAKE; Protocol Last Admin: 06/18/22 11:09 Dose: Not Given Insulin Glargine (Insulin Glargine (*Bkc) 100 Units/Ml) 15 units SUB-Q DAILY [facility] Nitroglycerin (Nitroglycerin Sl 0.4 Mg Tablet) 0.4 mg SUBLINGUAL Q5MIN PRN PRN Reason: Chest Pain Pantoprazole Sodium (Pantoprazole 40 Mg Tablet) 40 mg PO QAM [facility] Last Admin: 06/18/22 09:20 Dose: 40 mg Perflutren Lipid Microsphere (Perflutren Lipid Balaji
[2022-06-18 13:59] LABS: Glucose Point of Care 150 mg/dl (65-105)
--- NOTE | 2022-06-18 14:08 | WPDPROCEDUR ---
Procedures Intubation Intubation Date: 06/18/22 Intubation Time: 13:35 Consent: Consent obtained for POA A pre-procedural Time-Out was completed immediately before starting the procedure and confirmed: Patient Identification, Site, Procedure, Patient Position and the Availability of Requisite Equipment: Yes Sedative: etomidate Paralytic: rocuronium Laryngoscope: fiber optic video scope Assist device used: fiber optic device ET tube size: 8 Tube secured depth (cm): 25 Tube secured location: lips Tube placement confirmation: visualized tube passing through cords, equal breath sounds bilaterally, no breath sounds over epigastrium and confirmation by capnometry Patient tolerated procedure: well Intubation complications: none
[2022-06-18 14:45] LABS: Base Excess ABG -8.4 mEq/l (+/-2.0); Carboxyhemoglobin 0.2 % THb (0-2.0); Fractional Inspired Oxygen 100 %; HCO3 ABG 15.8 mEq/l (22.0-26.0); Methemoglobin ABG 0.3 %THb (0-1.5); Oxygen Content ABG 16.7 %vol (16.0-22.0); Oxygen Saturation ABG 97.6 % (95.0-100.0); Oxyhemoglobin 96.4 % THb (90.0-100.0); PCO2 ABG 28.9 mmHg (35.0-45.0); PO2 ABG 104.1 mmHg (80.0-100.0); PO2 FiO2 Ratio Arterial Blood 1.04 %; Reduced Hemoglobin 3.1 %THb (0-5.0); Total Hemoglobin 12.2 g/dL (12.0-18.0); pH ABG 7.355 (7.350-7.450)
[2022-06-18 14:46] LABS: Device VENTILATOR; Modified Allen's Test Pass; Site Drawn RIGHT RADIAL
[2022-06-18 14:47] LABS: Anion Gap 10 mmol/L (8-16); Blood Urea Nitrogen 47 mg/dL (9-20); Calcium 7.7 mg/dL (8.4-10.2); Carbon Dioxide 18 mmol/L (22-30); Chloride 110 mmol/L (98-107); Estimated CRCL calculation 24 ml/min; Estimated Glomerular Filt Rate 25; Glucose 157 mg/dL (65-110); Potassium 5.3 mmol/L (3.4-5.0); Sodium 138 mmol/L (137-145)
[2022-06-18 14:47] LABS: Arterial Blood Gas PEEP 5 cmH2O; Arterial Blood Gas Tidal Volume 500 ml; Arterial Blood Gas Vent Mode CMV; Arterial Blood Gas Ventilator rate 20 /MIN
[2022-06-18 14:49] LABS: Partial Thromboplastin Time 37.1 SECONDS (22.3-36.8)
[2022-06-21 20:04] LABS: Prolactin 10.4 ng/mL (***)
--- NOTE | 2022-07-23 12:05 | PM.DS ---
DS: Admitting Diagnosis Discharge Date 06/18/22 Admitting Diagnosis chest pain DS: Discharge Diagnosis Discharge Diagnosis (1) Non-ST elevation [place] (NSTEMI): Code(s): I21.4 - Non-ST elevation (NSTEMI) myocardial infarction Status: Acute Assessment and Plan: Patient presented with chest pain, elevated troponins, EKG changes, found to have NSTEMI along with DKA -elevated troponin levels -EKGs reviewed -appreciate cardiology evaluation and recommendation -continue heparin infusion -for coronary angiogram later today -continue aspirin, atorvastatin, morphine p.r.n., (2) Chest pain: Qualifiers: Chest pain type: unspecified Qualified Code(s): R07.9 - Chest pain, unspecified Code(s): R07.9 - Chest pain, unspecified Status: Acute Assessment and Plan: As above (3) DKA (diabetic ketoacidosis): Qualifiers: Diabetes mellitus type: type 2 Code(s): E11.10 - Type 2 diabetes mellitus with ketoacidosis without coma Status: Acute Assessment and Plan: Patient presented with blood sugars of 662, elevated anion gap, elevated beta hydroxybutyrate -patient received 4 L of IV fluid bolus in the ER insulin infusion -this morning patient's added the upper closed, patient was hypoglycemic had to be given D50 and juice -patient takes Tresiba at home, will give a low-dose of Lantus as he is currently NPO for possible coronary angiogram (4) Shock: Code(s): R57.9 - Shock, unspecified Status: Acute Assessment and Plan: Shock could be related to septic versus cardiogenic in light of NSTEMI -patient received adequate IV fluids - oliguria with worsening renal function -on Levophed, MAP > 65 mmHg at all times for adequate end organ perfusion -will check prolactin level -patient does have leukocytosis, UA did not reveal UTI, chest x-ray is diffuse bilateral infiltrates likely pulmonary edema versus pneumonia -will start ceftriaxone and azithromycin (5) BIN (acute kidney injury): Code(s): N17.9 - Acute kidney failure, unspecified Status: Acute Assessment and Plan: Patient with acute kidney injury likely due diabetic ketoacidosis, polyuria, infection, cardiogenic shock -received IV IV fluids in the ER as mentioned above -continue maintenance IV fluids as patient is currently NPO -have asked the bedside RN to flush Bacon catheter -monitor urine output, renal function electrolytes -BUN 46 and creatinine of 2.5 this morning, (6) Acute hyperkalemia: Code(s): E87.5 - Hyperkalemia Status: Acute Assessment and Plan: Potassium has resolved, likely related to acidosis from DKA (7) Blind left eye: Code(s): H54.40 - Blindness, one eye, unspecified eye Status: Chronic Assessment and Plan: Patient is blind to left eye Plan Transitioned to Lantus and sliding scale insulin Continue maintenance IV fluids Monitor urine output Coronary angiogram today DS: Summary Hospital Course Reason for hospitalization: DKA Hospital Course: Patient was admitted with Dka, no complications during the stay. Treated with iv fluids and meds Time Spent with Patient Time attestation: Total time spent providing and/or coordinating discharge services: Exam Narrative: General: Patient in no acute distress HEENT: Left eye blindness, right pupil reactive moist oral mucosa Neck: Supple Respiratory: Good air entry, trachea is central, decreased breath sound at bases, coarse intermittently Cardiac: Sinus bradycardia, S1-S2 is normal Abdomen: Soft, nontender, nondistended, hypoactive bowel sounds Extremities: Warm extremities, trace edema Neuro: Patient is awake, alert, oriented x3, follows simple commands, weakness on the right side from an old CVA Skin: Dry and intact, no lesions Psych: Withdrawn Discharge Plan Discharge Attending physician on discharge: Pino Varela Consulting providers: Angel Luis Cedeno
--- NOTE | 2022-07-25 05:41 | PM.DS ---
DS: Admitting Diagnosis Discharge Date 06/18/22 Admitting Diagnosis DKA DS: Summary Hospital Course Hospital Course: Patient was admitted with DKA. IV fluids and medications inculding insukin e=was given. Labs monitored closely. Time Spent with Patient Time attestation: Total time spent providing and/or coordinating discharge services: Discharge Plan Discharge Attending physician on discharge: Pino Varela Consulting providers: Angel Luis Cedeno ; Ester Herrera ; Gurpreet Perez ; Raj Castaneda ; Pino Varela ; Gabino Goodson V. Discharging Clinician: Pino Varela Patient Disposition: Acute Care Hospital Activity: as tolerated Patient Instructions: Diabetic Ketoacidosis (DC) Discharge Medications: Continued metformin 500 mg tablet extended release 24 hr 500 mg PO BID atorvastatin 40 mg tablet 40 mg PO HS Qty: 30 0RF Tresiba FlexTouch U-200 200 unit/mL (3 mL) insulin pen 20 - 24 unit SUBCUT HS Qty: 30 0RF Rx Instructions: Take as direted insulin lispro 100 unit/mL Insulin Pen 1 sliding scale dose SUBCUT USEASDIRECTD Qty: 30 0RF Rx Instructions: Take as directed pantoprazole 40 mg tablet,delayed release (DR/EC) 40 mg PO QAM Qty: 30 0RF sertraline 100 mg tablet 100 mg PO HS Qty: 30 0RF Date of admission: 06/17/22 20:39 Primary Care Provider: SalvadorSoto Admitting Provider: Antoino Roque Attending physician on admission: Justo Villatoro Condition: Critical
--- NOTE | 2022-08-10 12:10 | PM.TDS ---
Transfer Discharge Sum: Prov Provider Date of admission: 06/17/22 20:39 Primary care physician: Soto Nielsen, Admitting clinician: Earnest Roque DO Consults: 06/17/22 Consult to Physician Routine Comment: Consulting Provider: Angel Luis Cedeno Reason for consultation: elevated trop Has provider been notified: Yes Consult to Physician Routine Comment: Consulting Provider: Ester Herrera Reason for consultation: NSTEMI, DKA Has provider been notified: Yes DS: Admitting Diagnosis Discharge Date 06/18/22 Admitting Diagnosis DKA Transfer Discharge Sum: Med Medications Active and Home Medications: Home Medications atorvastatin 40 mg tablet 40 mg PO HS 06/17/22 [History Confirmed 06/17/22] insulin degludec 200 unit/mL (3 mL) subcutaneous pen (Tresiba FlexTouch U-200 insulin) 20 - 24 unit subcut HS 06/17/22 [History Confirmed 06/17/22] insulin lispro 100 unit/mL subcutaneous pen 1 sliding scale dose subcut USEASDIRECTD 06/17/22 [History Confirmed 06/17/22] metformin 500 mg tablet,extended release 24 hr 500 mg PO BID 06/17/22 [History Confirmed 06/17/22] pantoprazole 40 mg tablet,delayed release 40 mg PO QAM 06/17/22 [History Confirmed 06/17/22] sertraline 100 mg tablet 100 mg PO HS 06/17/22 [History Confirmed 06/17/22] Transfer Discharge Sum: Hosp Hospital Course Hospital course: Parmjit Quiroz is a 67 year old male Time Spent with Patient Time attestation: Total time spent providing and/or coordinating transfer services:
== END 2022-06-18 15:15 | disposition short-term general hospital (02) | DRG 280 ==
LOC: ANHED 19:16 → ANHICU 23:05
PROVIDERS: Emergency Medicine; General Practice; Internal Medicine; Admitting Provider Student in an Organized Health Care Education/Training Program; Emergency Provider Emergency Medicine; PCP Internal Medicine; Visit Provider Internal Medicine Cardiovascular Disease
PROC: 4A023N7 Measurement of Cardiac Sampling and Pressure, Left Heart, Percutaneous Approach (ICD-10-PCS; CPT 93452; principal; 2022-06-18 11:00)
PROC: 4A023N7 Measurement of Cardiac Sampling and Pressure, Left Heart, Percutaneous Approach (ICD-10-PCS; CPT 75630; 2022-06-18 11:00)
DX: I21.4 Non-ST elevation (NSTEMI) myocardial infarction (principal); E11.10 Type 2 diabetes mellitus with ketoacidosis without coma; R57.0 Cardiogenic shock; I69.351 Hemiplegia and hemiparesis following cerebral infarction affecting right dominant side; N17.9 Acute kidney failure, unspecified; I25.10 Atherosclerotic heart disease of native coronary artery without angina pectoris; E11.51 Type 2 diabetes mellitus with diabetic peripheral angiopathy without gangrene; Z20.822 Contact with and (suspected) exposure to COVID-19; F03.90 Unspecified dementia, unspecified severity, without behavioral disturbance, psychotic disturbance, mood disturbance, and anxiety; I10 Essential (primary) hypertension; E78.5 Hyperlipidemia, unspecified; E87.5 Hyperkalemia; D72.829 Elevated white blood cell count, unspecified; K21.9 Gastro-esophageal reflux disease without esophagitis; F41.9 Anxiety disorder, unspecified; F32.A Depression, unspecified; H54.40 Blindness, one eye, unspecified eye; Z66 Do not resuscitate; I25.2 Old myocardial infarction; Z79.4 Long term (current) use of insulin; Z79.84 Long term (current) use of oral hypoglycemic drugs; Z79.899 Other long term (current) drug therapy; Z87.820 Personal history of traumatic brain injury; Z87.891 Personal history of nicotine dependence
CPT/HCPCS: 36415; 36600; 75630; 80048; 80053; 80061; 81001; 82010; 82375; 82805; 82948; 83036; 83050; 83605; 83735; 84100; 84146; 84484; 85025; 85610; 85730; 93005; 93306; 93458; 94002; 96365; 96375; 99291; A9270; C1751; C1760; C1887; C1894; C9803; J0456; J0583; J0610; J0696; J1265; J1644; J1815; J2250; J3010; J3475; J3480; J7030; J7040; J7050; U0003; U0005